=== PATIENT | female | born 1940 | race Caucasian/White ===

== ENCOUNTER 2022-03-22 22:26 | Inpatient (IN) ==
[2022-03-22] MEDS ORDERED: ALBUT/IPRATROP 3MG/0.5MG NEB 3 ML VIAL NEB STA (22:53)
--- NOTE | 2022-03-22 22:58 | Emergency Department Note ---
Impression & Plan Hypoxia, CHF (congestive heart failure), SOB (shortness of breath), COVID-19, Hypokalemia ED Provider Note NAME: MARIA LUISA BAKER AGE: 81 SEX: F : 1940 ARRIVES VIA: Walk-In INFORMANT: [Patient][son] ED PROVIDER(S): [Andreas Escobar MD] CHIEF COMPLAINT: Shortness of breath HISTORY OF PRESENT ILLNESS: The patient is an 81-year-old female with some history of asthma. She also has had CHF. She has chronic A. fib. The patient was diagnosed with COVID about a week ago. She finished Paxlovid 2 days ago. The patient has had intermittent fevers and some cough. In the last 24 hours, she has felt short of breath. She feels worse since stopping the Paxlovid. There has been no vomiting, no diarrhea, no leg swelling, no chest pain. She feels like she cannot get a deep breath. She does not typically wear oxygen. No history of previous PE, no history of [place]. REVIEW OF SYSTEMS: See HPI for pertinent positives and negatives. A total of ten systems were reviewed and were otherwise negative. PMHx/PSHx: See Below SOCIAL HISTORY: See Below. PHYSICAL EXAM: GENERAL: Patient is in no acute distress. HEENT: No acute trauma, normocephalic atraumatic, mucous membranes moist, no nasal congestion, no scleral icterus. NECK: No stridor, no adenopathy, no meningismus, trachea is midline. LUNGS: There are few scattered crackles and scattered wheezes, breath sounds are diminished, no obvious respiratory distress. She is on 2 L of nasal cannula O2. HEART: Irregular rhythm, 4/6 systolic murmur, normal rate. ABDOMEN: Soft, nontender, bowel sounds positive, no peritonitis. EXTREMITIES: No cyanosis or edema, full range of motion of all the joints without pain or difficulty, no signs for acute trauma. NEUROLOGIC: Oriented x 3, no acute motor or sensory deficits, no focal weakness. SKIN: No rash, no jaundice, no diaphoresis. DIFFERENTIAL DIAGNOSIS: Reactive airway disease, pneumonia, COVID-19, RSV, influenza, pneumothorax, COPD, CHF, infection, cardiac ischemia, anemia, pulmonary embolism, bronchitis, as well as other pathologies. EMERGENCY DEPARTMENT COURSE/PROCEDURES: ECG: Indication was shortness of breath. The ECG shows atrial fibrillation with a rate of 78. There is some baseline artifact and some nonspecific ST change. There is no ST elevation, no PVCs, the QTc is 467. Continuous Cardiac Monitoring: An order was placed for continuous cardiac monitoring. The monitor shows a rate of 81 with atrial fibrillation. Critical Care Note: I have personally spent 47 minutes of critical care time in the direct management of this patient. This includes bedside care, interpretation of diagnostic studies, and testing, discussion with consultants, patient, and family members, and other required patient management activities. This 47 minutes is in excess of all separately billable procedures. MEDICAL DECISION MAKING: There is no leukocytosis, in fact, the white count is slightly low. There is a normal hemoglobin and platelet count. Potassium is slightly low, sodium slightly low. No renal failure. No concerning liver enzyme elevation. ECG shows atrial fibrillation, no obvious ischemia. Cardiac enzyme testing x1 is not consistent with acute cardiac injury. Patient appears to be in a euthyroid state. COVID test returned positive, influenza and RSV test returned negative. Chest x-ray shows some cardiomegaly and mild heart failure, no obvious pneumonia or pneumothorax. BNP was somewhat elevated consistent with fluid overload. Chest CT for PE is currently pending. Coags are currently pending. On exam, the patient was hypoxic with some crackles and wheezes to the lung su. Patient was given IV Lasix, 40 mg. She was given oral and IV potassium. She was given a DuoNeb. She was maintained on nasal cannula O2 supplementation. The patient presents short of breath and hypoxic. She is COVID-positive. She appears to be in mild CHF. She is hypokalemic. Hospitalization is indicated. I spoke with the patient, I spoke with her family, I talked to case management, the on-call hospitalist was consulted. Past Med/Surg History Medical History Atrial fibrillation CHF (congestive heart failure) COVID-19 HTN (hypertension) Social History Smoking Status: Never smoker Preferred Language: Cambodian Feels Safe at Home: Yes Allergies Allergies Allergy/AdvReac Type Severity Reaction Status Date / Time fexofenadine Allergy Unknown UNKNOWN Verified 03/22/22 23:48 tramadol AdvReac Intermediate DIZZINESS,N Verified 03/22/22 23:48 AUSEA aspirin AdvReac Unknown NOT TO Verified 03/22/22 23:48 TAKE BECAUSE ON WARFARIN Home Meds Home Medications Medication Instructions Recorded Confirmed Calcium/Vitamin D/Magnesium 1 tab PO BID 03/22/22 03/23/22 acetaminophen 650 mg 1,300 mg PO BID PRN Pain 03/22/22 03/23/22 tablet,extended release amlodipine 5 mg tablet 5 mg PO QAM 03/22/22 03/23/22 amoxicillin 500 mg capsule 2,000 mg PO DIRECTED PRN PRIOR 03/22/22 03/23/22 TO DENTAL PROCEDURES ascorbic acid (vitamin C) 500 mg 500 mg PO BID 03/22/22 03/23/22 tablet (Vitamin C) atenolol 25 mg tablet 25 mg PO QAM 03/22/22 03/23/22 echinacea 380 mg capsule 760 mg PO DAILY 03/22/22 03/23/22 fluticasone propionate 220 2 puff inhalation BID 03/22/22 03/23/22 mcg/actuation HFA aerosol inhaler (Flovent HFA) furosemide 40 mg tablet 80 mg PO QAM 03/22/22 03/23/22 glucosamine sulf dipotassium Cl 1 tab PO BID 03/22/22 03/23/22 500 mg-chondroitin sulf 400 mg tablet (Glucosamine-Chondroitin DS) levothyroxine 112 mcg tablet 112 mcg PO QAM 03/22/22 03/23/22 multivitamin 1 tab PO QPM 03/22/22 03/23/22 potassium chloride 20 mEq 20 meq PO Q OTHER DAY 03/22/22 03/23/22 tablet,extended release simvastatin 20 mg tablet 20 mg PO QAM 03/22/22 03/23/22 turmeric root extract 500 mg 1,000 mg PO BID 03/22/22 03/23/22 capsule warfarin 1 mg tablet 0 mg PO QPM 03/22/22 03/23/22 zinc gluconate 50 mg tablet 50 mg PO DAILY 03/23/22 03/23/22 Results & Data (ED) Vital Signs Vital Signs - 24 hr 03/22/22 22:28 03/22/22 23:04 03/22/22 23:30 Temperature 36.4 C L Temperature Source Temporal Artery Scan Pulse Rate 92 H Respiratory Rate 22 Respiratory Effort / Characteristics Short of Breath Respiratory Depth Normal Blood Pressure 137/78 Blood Pressure Mean 97 Pulse Oximetry 88 L 88 L Oxygen Delivery Method Room Air Nasal Cannula Oxygen Flow Rate 0 Sepsis Recent Fever Within 48 Hours No Sepsis New/Unexplained Change in Mental Status N/A Sepsis Action Taken by Nursing No Action Required Oxygen Flow Rate - Titration 2 Pulse Oximetry Post Tiitration 96 03/22/22 23:30 Temperature Temperature Source Pulse Rate Respiratory Rate Respiratory Effort / Characteristics Respiratory Depth Blood Pressure Blood Pressure Mean Pulse Oximetry 96 Oxygen Delivery Method Nasal Cannula Oxygen Flow Rate 2 Sepsis Recent Fever Within 48 Hours Sepsis New/Unexplained Change in Mental Status Sepsis Action Taken by Nursing Oxygen Flow Rate - Titration Pulse Oximetry Post Tiitration Home Medications Current Medication List: was personally reviewed by me Laboratory Data Attestation: I reviewed the patient's lab results. Result diagrams: 03/22/22 22:40 03/22/22 22:40 Lab Results 03/22/22 03/22/22 03/22/22 Range/Units 22:38 22:40 22:40 WBC 4.76 L (4.8-10.8) K/ul RBC 4.29 (3.93-5.22) M/uL Hgb 13.8 (12.0-16.0) g/dl Hct 39.6 (34.1-44.9) % MCV 92.3 (80.0-100.0) fL MCH 32.2 (25.0-34.0) pg MCHC 34.8 (32.0-36.0) g/dL RDW Std Deviation 47.0 H (36.4-46.3) fL RDW Coeff of Migel 13.8 (11.5-14.5) % Plt Count 187 (130-400) K/uL MPV 11.2 (9.4-12.3) fL Immature Gran % (Auto) 0.4 % Neut % (Auto) 72.1 % Lymph % (Auto) 12.6 % [place] % (Auto) 14.5 % Eos % (Auto) 0.2 % Baso % (Auto) 0.2 % Neut # (Auto) 3.43 (1.4-6.5) K/uL Lymph # (Auto) 0.60 L (1.2-3.4) K/uL [place] # (Auto) 0.69 (0.24-0.82) K/uL Eos # (Auto) 0.01 (0-0.50) K/uL Baso # (Auto) 0.01 (0-0.2) K/uL Immature Gran # (Auto) 0.02 (0.00-0.02) K/uL Sodium 132 L (136-145) mmol/L Potassium 3.1 L (3.5-5.1) mmol/L Chloride 98 (98-107) mmol/L Carbon Dioxide 25 (21-32) mmol/L Anion Gap 9 (3-11) BUN 10 (6-23) mg/dl Creatinine 0.53 L (0.6-1.2) mg/dl Est Cr Clr Drug Dosing 74.2 ml/min Est GFR ( Amer) 101.8 ml/min Est GFR (Non-Af Amer) 87.8 ml/min BUN/Creatinine Ratio 18.9 (10-20) Glucose 120 H (70-99(Fasting)) mg/dl Calcium 8.5 (8.5-10.1) mg/dl Magnesium 1.9 (1.7-2.4) mg/dl Total Bilirubin 0.6 (0.2-1.0) mg/dl AST 55 H (13-39) U/L ALT 27 (7-52) U/L Alkaline Phosphatase 65 (34-104) U/L Troponin I High Sens 12.7 (0-14) pg/ml B-Natriuretic Peptide (0-100) pg/ml Total Protein 6.9 (6.0-8.3) gm/dl Albumin 4.2 (3.4-5.0) gm/dl Globulin 2.7 (2.5-4.0) gm/dl Albumin/Globulin Ratio 1.6 (0.9-2) TSH (0.300-4.500) uIu/ml SARS-CoV-2 (PCR) POSITIVE A* (Negative) Influenza Type A (PCR) Negative (Neg) Influenza Type B (PCR) Negative (Neg) RSV (RT-PCR) Negative (Neg) 03/22/22 03/22/22 Range/Units 22:40 22:40 WBC (4.8-10.8) K/ul RBC (3.93-5.22) M/uL Hgb (12.0-16.0) g/dl Hct (34.1-44.9) % MCV (80.0-100.0) fL MCH (25.0-34.0) pg MCHC (32.0-36.0) g/dL RDW Std Deviation (36.4-46.3) fL RDW Coeff of Migel (11.5-14.5) % Plt Count (130-400) K/uL MPV (9.4-12.3) fL Immature Gran % (Auto) % Neut % (Auto) % Lymph % (Auto) % [place] % (Auto) % Eos % (Auto) % Baso % (Auto) % Neut # (Auto) (1.4-6.5) K/uL Lymph # (Auto) (1.2-3.4) K/uL [place] # (Auto) (0.24-0.82) K/uL Eos # (Auto) (0-0.50) K/uL Baso # (Auto) (0-0.2) K/uL Immature Gran # (Auto) (0.00-0.02) K/uL Sodium (136-145) mmol/L Potassium (3.5-5.1) mmol/L Chloride (98-107) mmol/L Carbon Dioxide (21-32) mmol/L Anion Gap (3-11) BUN (6-23) mg/dl Creatinine (0.6-1.2) mg/dl Est Cr Clr Drug Dosing ml/min Est GFR ( Amer) ml/min Est GFR (Non-Af Amer) ml/min BUN/Creatinine Ratio (10-20) Glucose (70-99(Fasting)) mg/dl Calcium (8.5-10.1) mg/dl Magnesium (1.7-2.4) mg/dl Total Bilirubin (0.2-1.0) mg/dl AST (13-39) U/L ALT (7-52) U/L Alkaline Phosphatase (34-104) U/L Troponin I High Sens (0-14) pg/ml B-Natriuretic Peptide 173 H (0-100) pg/ml Total Protein (6.0-8.3) gm/dl Albumin (3.4-5.0) gm/dl Globulin (2.5-4.0) gm/dl Albumin/Globulin Ratio (0.9-2) TSH 3.382 (0.300-4.500) uIu/ml SARS-CoV-2 (PCR) (Negative) Influenza Type A (PCR) (Neg) Influenza Type B (PCR) (Neg) RSV (RT-PCR) (Neg) Administered Medications Discontinued Medications Albuterol (Albut/Ipratrop 3mg/0.5mg Neb 3 Ml Vial) 3 ml NEB NOW STA; Protocol Stop: 03/22/22 22:54 Last Admin: 03/22/22 23:27 Dose: 3 ml Documented By: RADU Furosemide (Furosemide 40 Mg/4 Ml Vial) 40 mg IV ONE ONE Stop: 03/22/22 23:28 Last Admin: 03/22/22 23:50 Dose: 40 mg Documented By: RADU Ioversol (Optiray 320 500ml) 107 ml IV ONCE ONE Stop: 03/23/22 00:32 Last Admin: 03/23/22 00:31 Dose: 107 ml Documented By: CYDNEY Imaging Data My Impression: Chest x-ray: Per my review there is cardiomegaly and some mild CHF. No focal pneumonia or pneumothorax. Radiologist's Impression: Chest CT for PE: Pending. Discharge Plan Visit Data Chief Complaint: Shortness of Breath/Dyspnea Stated Complaint: SOB, COUGH, ED Provider: Andreas Escobar Discharge Problem: Hypoxia, CHF (congestive heart failure), SOB (shortness of breath), COVID-19, H ypokalemia Patient Disposition: Admitted As Inpatient Condition: Fair Forms Stand Alone Forms: My [facility] Prescriptions Prescriptions: No Action multivitamin Tablet 1 tab PO QPM amoxicillin 500 mg Capsule 2,000 mg PO DIRECTED PRN (Reason: PRIOR TO DENTAL PROCEDURES) furosemide 40 mg tablet 80 mg PO QAM echinacea 380 mg Capsule 760 mg PO DAILY Rx Instructions: administer with meals atenolol 25 mg tablet 25 mg PO QAM amlodipine 5 mg tablet 5 mg PO QAM acetaminophen [Tylenol Extended Release] 650 mg Tablet Extended Release 1,300 mg PO BID PRN (Reason: Pain) ascorbic acid (vitamin C) [Vitamin C] 500 mg Tablet 500 mg PO BID simvastatin 20 mg tablet 20 mg PO QAM fluticasone propionate [Flovent HFA] 220 mcg/actuation Hfa Aerosol Inhaler 2 puff INHALATION BID warfarin 1 mg tablet 0 mg PO QPM Rx Instructions: PER PT "TAKES 4.5 MG QPM, INR 03/22/22-3.4, INSTRUCTED TO HOLD WARFARIN 03/22 & 03/23, THEN RESUME REGULAR DOSE ON 03/24". levothyroxine 112 mcg tablet 112 mcg PO QAM glucosamine herrera 2KCl-chondroit [Glucosamine-Chondroitin DS] 500-400 mg Tablet 1 tab PO BID turmeric root extract 500 mg Capsule 1,000 mg PO BID potassium chloride 20 mEq Tablet Extended Release 20 meq PO Q OTHER DAY Calcium/Vitamin D/Magnesium 1 tab PO BID zinc gluconate 50 mg Tablet 50 mg PO DAILY Referrals Referrals: Terence Kern [Primary Care Provider] -
[2022-03-22 23:25] LABS: Influenza A virus by PCR Negative (Neg); Influenza B virus by PCR Negative (Neg); RSV by PCR Negative (Neg)
[2022-03-22 23:26] LABS: Basophils # (auto) 0.01 K/uL (0-0.2); Basophils % (auto) 0.2 %; Eosinophils # (auto) 0.01 K/uL (0-0.50); Eosinophils % (auto) 0.2 %; Hematocrit (blood only) 39.6 % (34.1-44.9); Hemoglobin 13.8 g/dl (12.0-16.0); Immature Granulocytes # (auto) 0.02 K/uL (0.00-0.02); Immature Granulocytes % (auto) 0.4 %; Lymphocytes % (auto) 12.6 %; Mean Corpuscular Hemoglobin 32.2 pg (25.0-34.0); Mean Corpuscular Hgb Conc 34.8 g/dL (32.0-36.0); Mean Corpuscular Volume 92.3 fL (80.0-100.0); Mean Platelet Volume 11.2 fL (9.4-12.3); Monocytes # (auto) 0.69 K/uL (0.24-0.82); Monocytes % (auto) 14.5 %; Neutrophils # (auto) 3.43 K/uL (1.4-6.5); Neutrophils % (auto) 72.1 %; Platelet Count 187 K/uL (130-400); RDW Coefficient of Variation 13.8 % (11.5-14.5); Red Blood Count 4.29 M/uL (3.93-5.22); White Blood Count 4.76 K/ul (4.8-10.8)
[2022-03-22] MEDS ORDERED: FUROSEMIDE 40 MG/4 ML VIAL IV ONE (23:27)
[2022-03-22 23:43] LABS: Albumin Globulin Ratio 1.6 (0.9-2); Albumin Level 4.2 gm/dl (3.4-5.0); BUN Creatinine Ratio 18.9 (10-20); Bilirubin,Total 0.6 mg/dl (0.2-1.0); Calcium 8.5 mg/dl (8.5-10.1); Creatinine Clr Calc Pharmacy 74.2 ml/min; Est GFR (African American) 101.8 ml/min; Est GFR (Non-African American) 87.8 ml/min; Globulin 2.7 gm/dl (2.5-4.0); Magnesium 1.9 mg/dl (1.7-2.4); Potassium 3.1 mmol/L (3.5-5.1); Total Protein 6.9 gm/dl (6.0-8.3)
[2022-03-22 23:45] LABS: Troponin I High Sensitivity 12.7 pg/ml (0-14)
[2022-03-23] MEDS ORDERED: POTASSIUM CHLORIDE / WTR 10 MEQ/100 ML PLCT IV ONE (00:09)
[2022-03-23] MEDS ORDERED: POTASSIUM CHLORIDE CRTAB 20 MEQ TABCR PO STA ×2 (00:09→08:48)
[2022-03-23 00:10] LABS: SARS CoV2 RNA(COVID-19) Ceph POSITIVE (Negative)
[2022-03-23 00:20] LABS: INR 4.4 (0.9-1.1); Partial Thromboplastin Ratio 2.1; Prothrombin Time 43.4 Seconds (9.0-12.0)
[2022-03-23] MEDS ORDERED: OPTIRAY 320 500ml IV ONE (00:31)
[2022-03-23 01:15] LABS: Partial Thromboplastin Time 58.9 Seconds (21.0-31.0)
[2022-03-23] MEDS ORDERED: NITROGLYCERIN SL 0.4 MG/TAB TAB SL PRN (02:24)
[2022-03-23] MEDS ORDERED: ONDANSETRON INJ 2 MG/ML 2 ML VIAL IV PRN (02:24)
[2022-03-23] MEDS ORDERED: LEVALBUTEROL HCL 1.25 MG/3 ML NEB NEB PRN (02:24)
--- NOTE | 2022-03-23 03:09 | History and Physical Report ---
DATE OF ADMISSION: 03/23/2022. CHIEF COMPLAINT: Shortness of breath. HISTORY OF PRESENT ILLNESS: This is an 81-year-old female with past medical history significant for hyperlipidemia, hypothyroidism, allergic rhinitis, atrial fibrillation, hypertension, history of CAD, history of aortic stenosis, status post replacement of bioprosthetic valve, presents with shortness of breath. She was diagnosed with COVID last Monday and she took Paxlovid for 5 days, finished last Monday. After finishing the course of Paxlovid, again she started having symptoms. She had one day of symptoms prior to diagnosis of COVID of fever and cough. Since last Monday, again she is having cough, bringing up yellowish phlegm, poor appetite, does not taste good, some nausea, and feeling short of breath. She was brought into the ER and she was saturating at 88%on room air and on 2 liters, she is saturating okay. She was able to ambulate to the bathroom in the ER. Currently afebrile. No headache, no blurred visions, no earache, no runny nose. Has some sore throat. She has some occasional difficulty swallowing. She also has some difficulty swallowing the pills. Denies any chest pain, no vomiting, no abdominal pain. She has some diarrhea. No blood in the stool or black stools. Normal bladder movements. No swelling in the legs, no rash. ALLERGIES: FEXOFENADINE, TRAMADOL, ASPIRIN. PAST MEDICAL HISTORY: As mentioned above. PAST SURGICAL HISTORY: Aortic valve replacement with bioprosthetic valve, salpingo-oophorectomy. MEDICATIONS: The patient is on Tylenol Extended Release 1300 mg p.o. b.i.d. p.r.n., amlodipine 5 mg p.o. a.m., amoxicillin prior to procedures, vitamin C 500 mg p.o. b.i.d., atenolol 25 mg p.o. a.m., calcium plus vitamin D plus magnesium 1 tablet p.o. b.i.d., echinacea 760 mg p.o. daily, Flovent HFA 2 puffs inhalation b.i.d., Lasix 80 mg p.o. a.m., glucosamine chondroitin DS 1 tablet p.o. b.i.d., levothyroxine 112 mcg p.o. a.m., multivitamin 1 tablet p.o. daily, potassium chloride 20 mEq p.o. every other day, simvastatin 20 mg p.o. a.m., turmeric root extract 1000 mg p.o. b.i.d., warfarin 1 mg p.o. p.m., zinc gluconate 50 mg p.o. daily. FAMILY HISTORY: Significant for sister has cancer; father has heart disorder; mother has thyroid disorder. SOCIAL HISTORY: No smoking, no alcohol, no drug use. REVIEW OF SYSTEMS: As per HPI. Rest of the review of systems is negative. PHYSICAL EXAMINATION: GENERAL: The patient is of moderate build, not in acute distress. VITAL SIGNS: Temperature 36.4, pulse 77, respiratory rate 20, blood pressure 128/70, oxygen 95% on 2 liters, was 88% on room air. HEENT: Pupils equal, round, and reactive to light. Oral mucosa moist. NECK: No JVD, no neck masses. CARDIOVASCULAR: S1 and S2 heard. Regular rate and rhythm. No murmur, no gallop. RESPIRATORY SYSTEM: Normal AP diameter. No accessory muscle use. No wheezing or crackles. ABDOMEN: Soft, bowel sounds present, nontender, no distention. CENTRAL NERVOUS SYSTEM: Alert and oriented. Speech is clear. No facial droop. Insight is okay. Obeys simple commands. Moves extremities. EXTREMITIES: No edema, no erythema seen. LABORATORY DATA: WBC 4.7, hemoglobin 13.8, hematocrit 39.6, platelets 187. PT 43.4, INR 4.4, APTT 58.9. Sodium 132, potassium 3.1, chloride 98, bicarbonate 25, BUN 10, creatinine 0.5, serum glucose 120, calcium 8.5, magnesium 1.9, total bilirubin 0.6, AST 55, ALT 27, alkaline phosphatase 65. Troponin I high sensitivity 12.7. BNP 173. TSH 3.3. SARS-CoV-2 PCR positive. Influenza A and B PCR negative. RSV PCR negative. IMAGING DATA: CTA chest, preliminary report, no acute findings. Chest x-ray, cardiomegaly, possible mild congestion in the chest. EKG: Shows atrial fibrillation, rate of 78, nonspecific ST abnormalities. ASSESSMENT AND PLAN: This is an 81-year-old female, who presents with shortness of breath, was recently diagnosed with COVID. 1. COVID positive, diagnosed last Monday, received Paxlovid for 5 days, finished the course on Monday. After that, again developed some congestion and not feeling well and short of breath requiring 2 liters of oxygen in the ER. Since she already received antivirals, we will place her on Decadron 6 mg daily, oxygen as needed, and continue home Flovent, and placed on Xopenex p.r.n. COVID precautions. Monitor in the [employer] tele. 2. Questionable congestive heart failure: She is on Lasix at home, but we do not have any echo in the chart. Will get an echocardiogram. Received one dose of IV Lasix in the ER. 3. Aortic stenosis, status post replacement with bioprosthetic valve. 4. History of atrial fibrillation: On Coumadin. INR is supratherapeutic at 4.4. Will hold the Coumadin. Follow PT/INR. 5. History of hypertension: Continue amlodipine and atenolol. Monitor the blood pressure. 6. Hypothyroidism: On Synthroid. 7. Hyperlipidemia: On statin. 8. History of coronary artery disease: On atenolol, statin, and Coumadin. 9. Deep venous thrombosis prophylaxis: On Coumadin which is on hold as INR supratherapeutic. DISPOSITION: Closely monitor in [employer] tele. PT/OT prior to discharge. Social service to help with discharge planning. Job ID: [id number] DAPHNEY
[2022-03-23] MEDS: LEVOTHYROXINE SODIUM 112 MCG TABLET PO SCH (06:37)
[2022-03-23 07:12] LABS: Basophils # (auto) 0.01 K/uL (0-0.2); Basophils % (auto) 0.3 %; Eosinophils # (auto) 0.02 K/uL (0-0.50); Eosinophils % (auto) 0.5 %; Hematocrit (blood only) 41.1 % (34.1-44.9); Hemoglobin 14.4 g/dl (12.0-16.0); Immature Granulocytes # (auto) 0.01 K/uL (0.00-0.02); Immature Granulocytes % (auto) 0.3 %; Lymphocytes # (auto) 0.57 K/uL (1.2-3.4); Lymphocytes % (auto) 15.6 %; Mean Corpuscular Hemoglobin 31.9 pg (25.0-34.0); Mean Corpuscular Volume 91.1 fL (80.0-100.0); Mean Platelet Volume 10.9 fL (9.4-12.3); Monocytes # (auto) 0.63 K/uL (0.24-0.82); Monocytes % (auto) 17.2 %; Neutrophils # (auto) 2.42 K/uL (1.4-6.5); Neutrophils % (auto) 66.1 %; Platelet Count 178 K/uL (130-400); RDW Standard Deviation 47.4 fL (36.4-46.3); Red Blood Count 4.51 M/uL (3.93-5.22); White Blood Count 3.66 K/ul (4.8-10.8)
[2022-03-23 07:32] LABS: INR 3.8 (0.9-1.1); Prothrombin Time 37.4 Seconds (9.0-12.0)
[2022-03-23 07:45] LABS: Troponin I High Sensitivity 14.1 pg/ml (0-14)
[2022-03-23 07:49] LABS: BUN Creatinine Ratio 14.9 (10-20); Calcium 8.3 mg/dl (8.5-10.1); Creatinine Clr Calc Pharmacy 83.6 ml/min; Est GFR (African American) 105.9 ml/min; Est GFR (Non-African American) 91.3 ml/min; Magnesium 1.9 mg/dl (1.7-2.4); Potassium 3.1 mmol/L (3.5-5.1)
--- NOTE | 2022-03-23 07:50 | XRay Report ---
XR chest 1V portable CLINICAL HISTORY: SOB TECHNIQUE: Single frontal radiograph of the chest was obtained. Comparison: Comparison is made to chest radiograph 10/07/2015 FINDINGS: Median sternotomy wires are unchanged. Cardiomegaly is noted. Aortic valve prosthesis is seen. Promin ence and cephalization of the vasculature is seen. No evidence of pleural effusion or pneumothorax. IMPRESSION: Cardiomegaly and mild pulmonary edema. ACT 112: Negative or not required by law. Electronically signed by: Luther Balderas M.D. 03/23/2022 7:48 AM
--- NOTE | 2022-03-23 08:03 | CT Scan Report ---
CT angio chest PE protocol CLINICAL HISTORY: PE TECHNIQUE: Multidetector row helical CT of the chest was performed with angiographic protocol. Saha l and sagittal reformations were obtained. Coronal and sagittal MIPS were obtained from the axial yonathan a set and were submitted for review. Automated dose lowering techniques and/or adjustment according to patient size were utilized for this exam. CT DOSE: 399.68 mGy.cm Comparison: Comparison is made to chest radiograph 03/22/2022 FINDINGS: Lungs and pleura: Atelectasis versus scarring is seen in the dependent portions of the lungs.6 pleura l plaques are seen at the left lung base with associated pleural thickening. Heart and pericardium: Prominent biatrial enlargement is noted with cardiomegaly. Vessels: No evidence of pulmonary embolism. Mediastinum and fiona: Unremarkable. Chest wall and lower neck: Unremarkable. Abdomen: Unremarkable. Bones: Degenerative changes in the thoracic spine. IMPRESSION: 1. No evidence of pulmonary embolism. 2. 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 3. Prominent cardiomegaly with biatrial enlargement. ACT 112: Negative or not required by law. Electronically signed by: Luther Balderas M.D. 03/23/2022 8:02 AM
[2022-03-23] MEDS: dexAMETHasone 6 MG in SYRINGE 0 ML IV SCH (08:04)
[2022-03-23] MEDS: GLUCOSAMINE SULFATE 500 MG CAP PO SCH ×2 (08:04→20:41)
[2022-03-23] MEDS: FLUTICASONE FUROATE 200MCG 14 PUFFS/INHALER INH SCH (08:04)
[2022-03-23] MEDS: ZINC SULFATE 220 MG CAPSULE PO SCH (08:05)
[2022-03-23] MEDS: ASCORBIC ACID 500 MG TAB PO SCH ×2 (08:05→20:42)
[2022-03-23] MEDS: POTASSIUM CHLORIDE CRTAB 20 MEQ TABCR PO SCH (08:05)
[2022-03-23] MEDS: SIMVASTATIN 20 MG TAB PO SCH (08:06)
[2022-03-23] MEDS: FUROSEMIDE 80 MG TAB PO SCH (08:06)
[2022-03-23] MEDS: ATENOLOL 25 MG TABLET PO SCH (08:07)
[2022-03-23] MEDS: ACETAMINOPHEN 325 MG TAB PO PRN ×2 (08:20→20:45)
[2022-03-23] MEDS ORDERED: amLODIPine BESYLATE 5 MG TAB PO SCH (09:00)
[2022-03-23] MEDS ORDERED: FLUTICASONE HFA 220 MCG INHALER INH SCH (09:00)
--- NOTE | 2022-03-23 09:44 | Electrocardiogram Report ---
Test Reason : Blood Pressure : / mmHG Vent. Rate : 078 BPM Atrial Rate : 394 BPM P-R Int : 000 ms QRS Dur : 086 ms QT Int : 410 ms P-R-T Axes : 000 062 022 degrees QTc Int : 467 ms Poor data quality, interpretation may be adversely affected Atrial fibrillation Nonspecific ST and T wave abnormality Abnormal ECG When compared with ECG of 02-NOV-2015 14:06, Nonspecific T wave abnormality now evident in Inferior leads Inverted T waves have replaced nonspecific T wave abnormality in Anterior leads Confirmed by Marshall Chamorro ([id number]) on 03/23/2022 9:44:15 AM Referred By: REFERRED SELF Confirmed By:Sam Chamorro
[2022-03-23] MEDS: guaiFENesin 600 MG TABCR PO SCH ×2 (14:46→20:46)
--- NOTE | 2022-03-23 14:55 | Hospitalist Progress Note ---
Date of Service March 23, 2022 Assessment & Plan (1) COVID-19: (2) Hypoxia: Plan: ASSESSMENT AND PLAN: This is an 81-year-old female, who presents with shortness of breath, was recently diagnosed with COVID. 1. COVID 19 infection with hypoxia - CT chest: 1. No evidence of pulmonary embolism. 2. 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 3. Prominent cardiomegaly with biatrial enlargement. - on Decadron 6mg IV daily discussed benefits and risks of Remdesivir, patient would like to think about it first - Mucinex BID IS, FV - monitor closely 2. Questionable congestive heart failure: She is on Lasix at home, but we do not have any echo in the chart. Will get an echocardiogram. Received one dose of IV Lasix in the ER. - Echo pending no signs of volume overload hold Lasix PO for now 3. Aortic stenosis, status post replacement with bioprosthetic valve. 4. History of atrial fibrillation - INR 3.8 hold coumadin for now INR daily 5. History of hypertension - BP on the lower side hold Amlodipine and Atenololol 6. Hypothyroidism: On Synthroid. 7. Hyperlipidemia: On statin. 8. History of coronary artery disease: On atenolol, statin, and Coumadin. 9. Deep venous thrombosis prophylaxis: On Coumadin which is on hold as INR supratherapeutic. DISPOSITION:lives alone at home plan of care discussed with patient in detail and at length all questions answered she is understanding, agreeable, comfortable with the plan of care Admission and Anticipated Discharge Date Admission Date: March 23, 2022 Subjective ff up for covid 19 infection with hypoxia, etc seen resting in bed, comfortable on 2 L NC states she has dyspnea on exertion but at rest, breathing is improving since admission, less cough no chest pain appetite is poor had 1 loose BM this morning no leg pain no other symptoms Review of Systems Review of Systems: all noted and negative except for above Physical Exam Physical Exam: General- oriented x 3, not in distress, speaks in sentences with no effort or accessory muscle use Eyes- anicteric Neck- no JVD Lungs- mildly diminished breath sounds at the bases no wheezing no crackles Heart- normal rate, regular rhythm; (+) grade 3 holosystolic murmur Abdomen- normal bowel sounds, nondistended, soft, no tenderness Extremities- no pretibial edema, no calf tenderness Neuro- alert, oriented x 3; no gross focal neurologic deficits Skin- warm & dry Results & Data Results & Data ([facility]) Vital Signs (Past 12 Hours) Vital Signs Pulse Pulse Resp BP BP Pulse Ox Pulse Ox 03/23/22 13:07 95 03/23/22 11:39 03/23/22 10:30 67 20 90/60 L 95 03/23/22 09:33 70 18 113/59 L 96 03/23/22 07:00 71 18 118/74 98 03/23/22 05:00 75 18 125/77 99 O2 Del Method O2 Del Method O2 Flow Rate O2 Flow Rate 03/23/22 13:07 Nasal Cannula 2 03/23/22 11:39 Nasal Cannula 2 03/23/22 10:30 Nasal Cannula 2 03/23/22 09:33 Nasal Cannula 2 03/23/22 07:00 Nasal Cannula 2 03/23/22 05:00 Nasal Cannula 2 all noted and reviewed including below
[2022-03-23] MEDS ORDERED: REMDESIVIR 200 MG in SODIUM CHLORIDE 0.9% 210 ML IV STA (17:20)
[2022-03-23] MEDS: MULTIVITAMIN TAB PO SCH (20:42)
[2022-03-23] MEDS: MELATONIN 3 MG TAB PO PRN (23:45)
[2022-03-24] MEDS: LEVOTHYROXINE SODIUM 112 MCG TABLET PO SCH (06:26)
[2022-03-24 06:49] LABS: Hematocrit (blood only) 42.3 % (34.1-44.9); Hemoglobin 14.8 g/dl (12.0-16.0); Immature Granulocytes # (auto) 0.01 K/uL (0.00-0.02); Immature Granulocytes % (auto) 0.3 %; Lymphocytes # (auto) 0.83 K/uL (1.2-3.4); Lymphocytes % (auto) 20.8 %; Mean Corpuscular Volume 91.6 fL (80.0-100.0); Mean Platelet Volume 10.8 fL (9.4-12.3); Monocytes # (auto) 0.72 K/uL (0.24-0.82); Neutrophils # (auto) 2.43 K/uL (1.4-6.5); Neutrophils % (auto) 60.9 %; Platelet Count 210 K/uL (130-400); RDW Coefficient of Variation 14.1 % (11.5-14.5); RDW Standard Deviation 47.3 fL (36.4-46.3); Red Blood Count 4.62 M/uL (3.93-5.22); White Blood Count 3.99 K/ul (4.8-10.8)
[2022-03-24 07:14] LABS: Albumin Globulin Ratio 1.4 (0.9-2); Albumin Level 4.1 gm/dl (3.4-5.0); BUN Creatinine Ratio 31.9 (10-20); Bilirubin,Total 0.5 mg/dl (0.2-1.0); Calcium 9.3 mg/dl (8.5-10.1); Creatinine Clr Calc Pharmacy 84.3 ml/min; Est GFR (African American) 105.9 ml/min; Est GFR (Non-African American) 91.3 ml/min; Globulin 2.9 gm/dl (2.5-4.0); Potassium 3.8 mmol/L (3.5-5.1)
[2022-03-24 07:40] LABS: INR 2.6 (0.9-1.1)
[2022-03-24] MEDS: ASCORBIC ACID 500 MG TAB PO SCH ×2 (08:30→21:02)
[2022-03-24] MEDS: GLUCOSAMINE SULFATE 500 MG CAP PO SCH ×2 (08:30→21:02)
[2022-03-24] MEDS: guaiFENesin 600 MG TABCR PO SCH ×2 (08:30→21:02)
[2022-03-24] MEDS: FLUTICASONE FUROATE 200MCG 14 PUFFS/INHALER INH SCH (08:30)
[2022-03-24] MEDS: ZINC SULFATE 220 MG CAPSULE PO SCH (08:30)
[2022-03-24] MEDS: SIMVASTATIN 20 MG TAB PO SCH (08:30)
[2022-03-24] MEDS: dexAMETHasone 6 MG in SYRINGE 0 ML IV SCH (09:02)
[2022-03-24] MEDS: ACETAMINOPHEN 325 MG TAB PO PRN (09:02)
--- NOTE | 2022-03-24 17:35 | Hospitalist Progress Note ---
Date of Service March 24, 2022 Assessment & Plan (1) COVID-19: (2) Hypoxia: Plan: ASSESSMENT AND PLAN: This is an 81-year-old female, who presents with shortness of breath, was recently diagnosed with COVID. 1. COVID 19 infection with hypoxia - CT chest: 1. No evidence of pulmonary embolism. 2. 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 3. Prominent cardiomegaly with biatrial enlargement. - on Decadron 6mg IV daily discussed benefits and risks of Remdesivir, patient would like to think about it first - Mucinex BID IS, FV - monitor closely 03/24 Patient stable overall Tolerating Decadron and remdesivir, continue to #2 Renal function and liver function okay Continue Mucinex twice daily, incentive spirometry, flutter valve Repeat chest x-ray tomorrow 2. Questionable congestive heart failure: She is on Lasix at home, but we do not have any echo in the chart. Will get an echocardiogram. Received one dose of IV Lasix in the ER. - Echo: EF 65 to 70%, left atrium severely dilated, moderate to severe mitral regurgitation is present, there is a bioprosthetic aortic valve, no significant prosthetic regurgitation, compared to the report of the prior study dated 11/03/2015, the aortic valve velocities are relatively unchanged no signs of volume overload hold Lasix PO for now as patient is poor oral intake 3. Aortic stenosis, status post replacement with bioprosthetic valve. 4. History of atrial fibrillation - INR 2.6 Continue with Coumadin INR daily 5. History of hypertension - BP on the lower side hold Amlodipine and Atenololol 6. Hypothyroidism: On Synthroid. 7. Hyperlipidemia: On statin. 8. History of coronary artery disease: On atenolol, statin, and Coumadin. 9. Deep venous thrombosis prophylaxis:On Coumadin DISPOSITION:lives alone at home plan of care discussed with patient in detail and at length all questions answered she is understanding, agreeable, comfortable with the plan of care Admission and Anticipated Discharge Date Admission Date: March 23, 2022 Subjective Follow-up for COVID-19 infection with hypoxia, etc. Seen resting with sitting up, on 2 L of oxygen via nasal cannula Patient is a comfortable, not in distress States she feels somewhat improved compared to yesterday Breathing still but better Still having some dry cough But no chest pain, palpitations, dizziness Appetite is improving No other symptom Review of Systems Review of Systems: all noted and negative except for above Physical Exam Physical Exam: General- oriented x 3, not in distress, speaks in sentences with no effort or accessory muscle use Eyes- anicteric Neck- no JVD Lungs- clear breath sounds bilaterally, no crackles or wheezing Heart- normal rate, regular rhythm; no murmurs Abdomen- normal bowel sounds, nondistended, soft, nontender Extremities- no pretibial edema, no calf tenderness Neuro- alert, oriented x 3; no gross focal neurologic deficits Skin- warm & dry Results & Data Results & Data ([facility]) Vital Signs (Past 12 Hours) Vital Signs Pulse Resp BP Pulse Ox O2 Del Method O2 Flow Rate 03/24/22 13:36 96 H 18 117/78 95 Nasal Cannula 2 03/24/22 08:56 Nasal Cannula 2 03/24/22 08:35 78 18 126/77 96 Nasal Cannula 2 all noted and reviewed including below
[2022-03-24] MEDS ORDERED: WARFARIN SOD 1 MG TAB PO STA (17:48)
[2022-03-24] MEDS: REMDESIVIR 100 MG in SODIUM CHLORIDE 0.9% 230 ML IV SCH (20:22)
[2022-03-24] MEDS: MULTIVITAMIN TAB PO SCH (21:02)
[2022-03-24] MEDS: MELATONIN 3 MG TAB PO PRN (22:31)
[2022-03-25] MEDS: LEVOTHYROXINE SODIUM 112 MCG TABLET PO SCH (05:53)
[2022-03-25 06:55] LABS: Albumin Globulin Ratio 1.5 (0.9-2); Albumin Level 3.7 gm/dl (3.4-5.0); BUN Creatinine Ratio 30.6 (10-20); Bilirubin,Total 0.5 mg/dl (0.2-1.0); Calcium 8.5 mg/dl (8.5-10.1); Creatinine Clr Calc Pharmacy 80.8 ml/min; Est GFR (African American) 104.4 ml/min; Est GFR (Non-African American) 90.1 ml/min; Globulin 2.5 gm/dl (2.5-4.0); Potassium 3.4 mmol/L (3.5-5.1); Total Protein 6.2 gm/dl (6.0-8.3)
[2022-03-25 07:09] LABS: INR 1.9 (0.9-1.1); Prothrombin Time 19.6 Seconds (9.0-12.0)
[2022-03-25] MEDS ORDERED: POTASSIUM CHLORIDE CRTAB 20 MEQ TABCR PO STA (08:22)
[2022-03-25] MEDS: FLUTICASONE FUROATE 200MCG 14 PUFFS/INHALER INH SCH (08:41)
[2022-03-25] MEDS: dexAMETHasone 6 MG in SYRINGE 0 ML IV SCH (08:41)
[2022-03-25] MEDS: guaiFENesin 600 MG TABCR PO SCH ×2 (08:42→20:16)
[2022-03-25] MEDS: SIMVASTATIN 20 MG TAB PO SCH (08:42)
[2022-03-25] MEDS: ASCORBIC ACID 500 MG TAB PO SCH ×2 (08:42→20:18)
[2022-03-25] MEDS: POTASSIUM CHLORIDE CRTAB 20 MEQ TABCR PO SCH (08:42)
[2022-03-25] MEDS: ZINC SULFATE 220 MG CAPSULE PO SCH (08:42)
[2022-03-25] MEDS: GLUCOSAMINE SULFATE 500 MG CAP PO SCH ×2 (08:42→20:18)
[2022-03-25] MEDS: ATENOLOL 25 MG TABLET PO SCH (12:09)
--- NOTE | 2022-03-25 14:22 | XRay Report ---
XR chest 1V portable CLINICAL HISTORY: ff up covid 19 infection TECHNIQUE: Single frontal radiograph of the chest was obtained. Comparison: Comparison is made to chest radiograph 03/22/2022 FINDINGS: Median sternotomy wires are unchanged. Cardiomegaly is noted. Prominence and cephalization of the vas culature is seen. Pleural plaques are better seen on CT. No evidence of pleural effusion or pneumotho rax. IMPRESSION: Cardiomegaly and mild pulmonary edema. No definite evidence of pneumonia. ACT 112: Negative or not required by law. Electronically signed by: Luther Balderas M.D. 03/25/2022 2:21 PM
[2022-03-25] MEDS ORDERED: FLUCONAZOLE 50 MG TAB PO ONE (14:30)
--- NOTE | 2022-03-25 16:24 | Hospitalist Progress Note ---
Date of Service March 25, 2022 Assessment & Plan (1) COVID-19: (2) Hypoxia: Plan: ASSESSMENT AND PLAN: This is an 81-year-old female, who presents with shortness of breath, was recently diagnosed with COVID. 1. COVID 19 infection with hypoxia - CT chest: 1. No evidence of pulmonary embolism. 2. 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 3. Prominent cardiomegaly with biatrial enlargement. - on Decadron 6mg IV daily discussed benefits and risks of Remdesivir, patient would like to think about it first - Mucinex BID IS, FV - monitor closely 03/24 Patient stable overall Tolerating Decadron and remdesivir, continue to #2 Renal function and liver function okay Continue Mucinex twice daily, incentive spirometry, flutter valve 03/25 Repeat chest x-ray: No pneumonia Weaned off oxygen Clinically improving Continue remdesivir plus Decadron Renal function and liver function okay 2. Questionable congestive heart failure: She is on Lasix at home, but we do not have any echo in the chart. Will get an echocardiogram. Received one dose of IV Lasix in the ER. - Echo: EF 65 to 70%, left atrium severely dilated, moderate to severe mitral regurgitation is present, there is a bioprosthetic aortic valve, no significant prosthetic regurgitation, compared to the report of the prior study dated 11/03/2015, the aortic valve velocities are relatively unchanged -Mild pulmonary vascular congestion on chest x-ray Resume Lasix 3. Aortic stenosis, status post replacement with bioprosthetic valve. 4. History of atrial fibrillation - INR 1.9 Continue with Coumadin INR daily -Resume atenolol 5. History of hypertension -Hold amlodipine to prevent hypotension 6. Hypothyroidism: On Synthroid. 7. Hyperlipidemia: On statin. 8. History of coronary artery disease: On atenolol, statin, and Coumadin. 9. Deep venous thrombosis prophylaxis:On Coumadin DISPOSITION:lives alone at home plan of care discussed with patient and her family in detail and at length all questions answered they are understanding, agreeable, comfortable with the plan of care Admission and Anticipated Discharge Date Admission Date: March 23, 2022 Subjective Follow-up for COVID-19 infection with hypoxia, etc. Patient seen resting in bed, sitting up, not in distress, comfortable Family at the bedside visiting States she feels improved today overall Breathing is improving Less cough, expectorating phlegm last night No chest pain Appetite improving No other symptoms Review of Systems Review of Systems: all noted and negative except for above Physical Exam Physical Exam: General- oriented x 3, not in distress, speaks in sentences with no effort or accessory muscle use Eyes- anicteric Neck- no JVD Lungs- clear BS bilaterally, no rales/wheezes Heart- normal rate, regular rhythm; no murmurs Abdomen- normal bowel sounds, nondistended, soft, nontender Extremities- no pretibial edema, no calf tenderness Neuro- alert, oriented x 3; no gross focal neurologic deficits Skin- warm & dry Results & Data Results & Data ([facility]) Vital Signs (Past 12 Hours) Vital Signs Temp Pulse Pulse Resp BP Pulse Ox O2 Del Method 03/25/22 16:18 77 03/25/22 08:45 Nasal Cannula 03/25/22 15:13 36.7 C 68 16 117/65 96 Room Air 03/25/22 12:01 36.9 C 87 18 122/86 95 Nasal Cannula 03/25/22 08:15 36.8 C 80 18 136/74 92 Room Air 03/25/22 07:21 69 O2 Flow Rate 03/25/22 16:18 03/25/22 08:45 2 03/25/22 15:13 03/25/22 12:01 2 03/25/22 08:15 03/25/22 07:21 all noted and reviewed including below
[2022-03-25] MEDS ORDERED: WARFARIN SOD 2 MG TAB PO SCH (17:00)
[2022-03-25] MEDS: WARFARIN SOD 2 MG TAB PO SCH (17:32)
[2022-03-25] MEDS: REMDESIVIR 100 MG in SODIUM CHLORIDE 0.9% 230 ML IV SCH (20:14)
[2022-03-25] MEDS: MULTIVITAMIN TAB PO SCH (20:17)
[2022-03-25] MEDS: MELATONIN 3 MG TAB PO PRN (21:14)
[2022-03-26 06:14] LABS: INR 2.1 (0.9-1.1); Prothrombin Time 21.1 Seconds (9.0-12.0)
[2022-03-26] MEDS: LEVOTHYROXINE SODIUM 112 MCG TABLET PO SCH (06:16)
[2022-03-26 06:31] LABS: Albumin Globulin Ratio 1.6 (0.9-2); Albumin Level 3.9 gm/dl (3.4-5.0); BUN Creatinine Ratio 33.3 (10-20); Bilirubin,Total 0.5 mg/dl (0.2-1.0); Calcium 8.7 mg/dl (8.5-10.1); Creatinine Clr Calc Pharmacy 86.6 ml/min; Est GFR (African American) 107.4 ml/min; Est GFR (Non-African American) 92.7 ml/min; Globulin 2.5 gm/dl (2.5-4.0); Potassium 3.7 mmol/L (3.5-5.1); Total Protein 6.4 gm/dl (6.0-8.3)
[2022-03-26] MEDS: guaiFENesin 600 MG TABCR PO SCH ×2 (08:09→20:06)
[2022-03-26] MEDS: GLUCOSAMINE SULFATE 500 MG CAP PO SCH ×2 (08:09→20:04)
[2022-03-26] MEDS: ASCORBIC ACID 500 MG TAB PO SCH ×2 (08:09→20:05)
[2022-03-26] MEDS: ZINC SULFATE 220 MG CAPSULE PO SCH (08:10)
[2022-03-26] MEDS: FUROSEMIDE 80 MG TAB PO SCH (08:10)
[2022-03-26] MEDS: ATENOLOL 25 MG TABLET PO SCH ×2 (08:10→08:14)
[2022-03-26] MEDS: SIMVASTATIN 20 MG TAB PO SCH (08:10)
[2022-03-26] MEDS: FLUTICASONE FUROATE 200MCG 14 PUFFS/INHALER INH SCH (08:14)
[2022-03-26] MEDS: dexAMETHasone 6 MG in SYRINGE 0 ML IV SCH (09:24)
[2022-03-26] MEDS: NYSTATIN SUSP 500,000 U/5 ML UDC PO SCH ×3 (12:32→20:03)
[2022-03-26] MEDS: WARFARIN SOD 2 MG TAB PO SCH (15:47)
--- NOTE | 2022-03-26 15:55 | Hospitalist Progress Note ---
Date of Service March 26, 2022 Assessment & Plan (1) COVID-19: (2) Hypoxia: Plan: ASSESSMENT AND PLAN: This is an 81-year-old female, who presents with shortness of breath, was recently diagnosed with COVID. 1. COVID 19 infection with hypoxia - CT chest: 1. No evidence of pulmonary embolism. 2. 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 3. Prominent cardiomegaly with biatrial enlargement. - on Decadron 6mg IV daily discussed benefits and risks of Remdesivir, patient would like to think about it first - Mucinex BID IS, FV - monitor closely 03/24 Patient stable overall Tolerating Decadron and remdesivir, continue to #2 Renal function and liver function okay Continue Mucinex twice daily, incentive spirometry, flutter valve 03/25 Repeat chest x-ray: No pneumonia Weaned off oxygen Clinically improving Continue remdesivir plus Decadron Renal function and liver function okay 03/26 clinically improving on 2 L, discussed with RN to attempt weaning continue Remdesivir Day 3, Decadron blood work ok 2. Questionable congestive heart failure: - Echo: EF 65 to 70%, left atrium severely dilated, moderate to severe mitral regurgitation is present, there is a bioprosthetic aortic valve, no significant prosthetic regurgitation, compared to the report of the prior study dated 11/03/2015, the aortic valve velocities are relatively unchanged -Mild pulmonary vascular congestion on chest x-ray Resumed Lasix 3. Aortic stenosis, status post replacement with bioprosthetic valve. 4. History of atrial fibrillation - INR 2.1 Continue with Coumadin INR daily -Resume atenolol 5. History of hypertension -Hold amlodipine to prevent hypotension 6. Hypothyroidism: On Synthroid. 7. Hyperlipidemia: On statin. 8. History of coronary artery disease: On atenolol, statin, and Coumadin. 9. Deep venous thrombosis prophylaxis:On Coumadin DISPOSITION:lives alone at home plan of care discussed with patient and her family in detail and at length all questions answered they are understanding, agreeable, comfortable with the plan of care Admission and Anticipated Discharge Date Admission Date: March 23, 2022 Subjective ff up for COVID-19 infection with hypoxia, etc. Seen resting in bed, sitting up on 2 L of oxygen via nasal cannula States she continues to feel improved overall Breathing is improving Less cough, no chest pain, no leg pain, appetite is improving No fevers or chills No other symptoms Review of Systems Review of Systems: all noted and negative except for above Physical Exam Physical Exam: General- oriented x 3, not in distress, speaks in sentences with no effort or accessory muscle use Eyes- anicteric Neck- no JVD Lungs- clear breath sounds BL, no crackles or wheezing Heart- normal rate, regular rhythm; (+) murmur Abdomen- normal bowel sounds, nondistended, soft, nontender Extremities- no pretibial edema, no calf tenderness Neuro- alert, oriented x 3; no gross focal neurologic deficits Skin- warm & dry Results & Data Results & Data ([facility]) Vital Signs (Past 12 Hours) Vital Signs Temp Pulse Pulse Resp BP Pulse Ox O2 Del Method 03/26/22 15:15 68 03/26/22 07:48 36.7 C 79 18 126/78 97 Nasal Cannula 03/26/22 07:12 57 L O2 Flow Rate 03/26/22 15:15 03/26/22 07:48 2 03/26/22 07:12 all noted and reviewed including below
[2022-03-26] MEDS: REMDESIVIR 100 MG in SODIUM CHLORIDE 0.9% 230 ML IV SCH (20:02)
[2022-03-26] MEDS: MELATONIN 3 MG TAB PO PRN (20:03)
[2022-03-26] MEDS: MULTIVITAMIN TAB PO SCH (20:05)
[2022-03-26] MEDS: ACETAMINOPHEN 325 MG TAB PO PRN (20:34)
[2022-03-27] MEDS: LEVOTHYROXINE SODIUM 112 MCG TABLET PO SCH (06:33)
[2022-03-27] MEDS: guaiFENesin 600 MG TABCR PO SCH ×2 (07:43→20:48)
[2022-03-27] MEDS: FUROSEMIDE 80 MG TAB PO SCH (07:44)
[2022-03-27] MEDS: ASCORBIC ACID 500 MG TAB PO SCH ×2 (07:44→20:48)
[2022-03-27] MEDS: SIMVASTATIN 20 MG TAB PO SCH (07:44)
[2022-03-27] MEDS: NYSTATIN SUSP 500,000 U/5 ML UDC PO SCH ×4 (07:45→20:50)
[2022-03-27] MEDS: FLUTICASONE FUROATE 200MCG 14 PUFFS/INHALER INH SCH (07:45)
[2022-03-27] MEDS: GLUCOSAMINE SULFATE 500 MG CAP PO SCH ×2 (07:45→20:49)
[2022-03-27] MEDS: ZINC SULFATE 220 MG CAPSULE PO SCH (07:45)
[2022-03-27] MEDS: dexAMETHasone 6 MG in SYRINGE 0 ML IV SCH (07:46)
[2022-03-27] MEDS: ATENOLOL 25 MG TABLET PO SCH (07:49)
[2022-03-27 08:12] LABS: Albumin Globulin Ratio 1.5 (0.9-2); Albumin Level 3.7 gm/dl (3.4-5.0); BUN Creatinine Ratio 31.3 (10-20); Bilirubin,Total 0.7 mg/dl (0.2-1.0); Calcium 8.5 mg/dl (8.5-10.1); Creatinine Clr Calc Pharmacy 81.3 ml/min; Est GFR (African American) 105.1 ml/min; Est GFR (Non-African American) 90.7 ml/min; Globulin 2.4 gm/dl (2.5-4.0); Potassium 3.3 mmol/L (3.5-5.1); Total Protein 6.1 gm/dl (6.0-8.3)
[2022-03-27 08:13] LABS: INR 2.3 (0.9-1.1); Prothrombin Time 23.5 Seconds (9.0-12.0)
[2022-03-27] MEDS: POTASSIUM CHLORIDE CRTAB 20 MEQ TABCR PO SCH (09:22)
[2022-03-27] MEDS: ACETAMINOPHEN 325 MG TAB PO PRN ×2 (12:39→23:04)
[2022-03-27] MEDS ORDERED: POTASSIUM CHLORIDE CRTAB 20 MEQ TABCR PO STA (13:31)
--- NOTE | 2022-03-27 14:53 | Hospitalist Progress Note ---
Date of Service March 27, 2022 Assessment & Plan (1) COVID-19: (2) Hypoxia: Plan: ASSESSMENT AND PLAN: This is an 81-year-old female, who presents with shortness of breath, was recently diagnosed with COVID. 1. COVID 19 infection with hypoxia - CT chest: 1. No evidence of pulmonary embolism. 2. 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 3. Prominent cardiomegaly with biatrial enlargement. - on Decadron 6mg IV daily discussed benefits and risks of Remdesivir, patient would like to think about it first - Mucinex BID IS, FV - monitor closely 03/27 Stable Clinically improving Continue remdesivir day #5 Continue Decadron Anticipate discharge to home tomorrow 2. Questionable congestive heart failure: - Echo: EF 65 to 70%, left atrium severely dilated, moderate to severe mitral regurgitation is present, there is a bioprosthetic aortic valve, no significant prosthetic regurgitation, compared to the report of the prior study dated 11/03/2015, the aortic valve velocities are relatively unchanged -Mild pulmonary vascular congestion on chest x-ray Continue usual Lasix 3. Aortic stenosis, status post replacement with bioprosthetic valve. 4. History of atrial fibrillation - INR 2.3 Continue with Coumadin INR daily -Resume atenolol 5. History of hypertension -Hold amlodipine to prevent hypotension 6. Hypothyroidism: On Synthroid. 7. Hyperlipidemia: On statin. 8. History of coronary artery disease: On atenolol, statin, and Coumadin. 9. Deep venous thrombosis prophylaxis:On Coumadin DISPOSITION:lives alone at home plan of care discussed with patient and her family in detail and at length all questions answered they are understanding, agreeable, comfortable with the plan of care Admission and Anticipated Discharge Date Admission Date: March 23, 2022 Subjective Follow-up for COVID-19 infection with hypoxia, etc. Seen sitting up in bed, comfortable, not distressed On 2 L of oxygen States breathing is fine, better overall No cough, shortness of breath, Even with ambulation No other symptoms Review of Systems Review of Systems: all noted and negative except for above Physical Exam Physical Exam: General- oriented x 3, not in distress, speaks in sentences with no effort or accessory muscle use Eyes- anicteric Neck- no JVD Lungs- clear breath sounds bilaterally, no wheezing, no crackles Heart- normal rate, regular rhythm; no murmurs Abdomen- normal bowel sounds, nondistended, soft, nontender Extremities- no pretibial edema, no calf tenderness Neuro- alert, oriented x 3; no gross focal neurologic deficits Skin- warm & dry Results & Data Results & Data ([facility]) Vital Signs (Past 12 Hours) Vital Signs Temp Pulse Pulse Resp BP Pulse Ox O2 Del Method 03/27/22 08:46 Nasal Cannula 03/27/22 06:55 36.7 C 94 H 14 152/85 H 94 Room Air 03/27/22 07:12 52 L O2 Flow Rate 03/27/22 08:46 2 03/27/22 06:55 03/27/22 07:12 all noted and reviewed including below
[2022-03-27] MEDS: WARFARIN SOD 2 MG TAB PO SCH (16:10)
[2022-03-27] MEDS: REMDESIVIR 100 MG in SODIUM CHLORIDE 0.9% 230 ML IV SCH (20:46)
[2022-03-27] MEDS: MULTIVITAMIN TAB PO SCH (20:48)
[2022-03-27] MEDS: MELATONIN 3 MG TAB PO PRN (23:03)
[2022-03-28] MEDS: LEVOTHYROXINE SODIUM 112 MCG TABLET PO SCH (06:40)
[2022-03-28] MEDS ORDERED: COUGH DROP (SUGAR FREE) LOZ 24 LOZ/1 BOX BUCCAL PRN (07:38)
[2022-03-28 08:45] LABS: INR 2.4 (0.9-1.1); Prothrombin Time 24.5 Seconds (9.0-12.0)
[2022-03-28 08:54] LABS: BUN Creatinine Ratio 32.6 (10-20); Calcium 8.5 mg/dl (8.5-10.1); Creatinine Clr Calc Pharmacy 84.9 ml/min; Est GFR (African American) 106.6 ml/min; Potassium 3.7 mmol/L (3.5-5.1)
[2022-03-28] MEDS: dexAMETHasone 6 MG in SYRINGE 0 ML IV SCH (09:43)
[2022-03-28] MEDS: FUROSEMIDE 80 MG TAB PO SCH (09:44)
[2022-03-28] MEDS: ASCORBIC ACID 500 MG TAB PO SCH (09:44)
[2022-03-28] MEDS: guaiFENesin 600 MG TABCR PO SCH (09:44)
[2022-03-28] MEDS: ATENOLOL 25 MG TABLET PO SCH (09:44)
[2022-03-28] MEDS: FLUTICASONE FUROATE 200MCG 14 PUFFS/INHALER INH SCH (09:44)
[2022-03-28] MEDS: SIMVASTATIN 20 MG TAB PO SCH (09:44)
[2022-03-28] MEDS: GLUCOSAMINE SULFATE 500 MG CAP PO SCH (09:44)
[2022-03-28] MEDS: ZINC SULFATE 220 MG CAPSULE PO SCH (09:44)
[2022-03-28] MEDS: NYSTATIN SUSP 500,000 U/5 ML UDC PO SCH ×2 (09:45→12:39)
[2022-03-28] MEDS: ACETAMINOPHEN 325 MG TAB PO PRN (09:45)
--- NOTE | 2022-03-28 14:21 | Hospitalist Progress Note ---
Date of Service March 28, 2022 Assessment & Plan (1) COVID-19: (2) Hypoxia: Plan: ASSESSMENT AND PLAN: This is an 81-year-old female, who presents with shortness of breath, was recently diagnosed with COVID. 1. COVID 19 infection with hypoxia - CT chest: 1. No evidence of pulmonary embolism. 2. 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 3. Prominent cardiomegaly with biatrial enlargement. -Completed 5-day course of remdesivir and Decadron IV -Also given Mucinex BID IS, FV Patient clinically improved Weaned off oxygen Discharge to home with Mucinex twice daily x3 days, nystatin for oral thrush x7 days Follow-up with primary care physician in 1 week 2. Questionable congestive heart failure: - Echo: EF 65 to 70%, left atrium severely dilated, moderate to severe mitral regurgitation is present, there is a bioprosthetic aortic valve, no significant prosthetic regurgitation, compared to the report of the prior study dated 11/03/2015, the aortic valve velocities are relatively unchanged -Mild pulmonary vascular congestion on chest x-ray -Clinically euvolemic - Continue usual Lasix 3. Aortic stenosis, status post replacement with bioprosthetic valve. 4. History of atrial fibrillation - INR 2.4 Continue with Coumadin Continue with atenolol 5. History of hypertension -Continue amlodipine 6. Hypothyroidism: On Synthroid. 7. Hyperlipidemia: On statin. 8. History of coronary artery disease: On atenolol, statin, and Coumadin. 9. Deep venous thrombosis prophylaxis:On Coumadin DISPOSITION:Discharge to home with home health services plan of care discussed with patient all questions answered she is understanding, agreeable, comfortable with the plan of care Admission and Anticipated Discharge Date Admission Date: March 23, 2022 Subjective Follow-up for COVID-19 infection, hypoxia, etc. Seen resting in bed, sitting up, not in distress, on room air Comfortable States she feels much better overall No shortness of breath, chest pain, palpitations, dizziness Very minimal cough No other symptoms States she is ready for discharge today Review of Systems Review of Systems: all noted and negative except for above Physical Exam Physical Exam: General- oriented x 3, not in distress, speaks in sentences with no effort or accessory muscle use Eyes- anicteric Neck- no JVD Lungs- clear breath sounds bilaterally, no wheezing, no crackles Heart- normal rate, regular rhythm; no murmurs Abdomen- normal bowel sounds, nondistended, soft, nontender Extremities- no pretibial edema, no calf tenderness Neuro- alert, oriented x 3; no gross focal neurologic deficits Skin- warm & dry Results & Data Results & Data ([facility]) Vital Signs (Past 12 Hours) Vital Signs Temp Pulse Pulse Pulse Pulse Pulse Resp 03/28/22 13:29 36.7 C 78 20 03/28/22 08:00 82 03/28/22 08:00 03/28/22 12:10 78 20 03/28/22 09:21 119 H 98 H 78 03/28/22 07:52 36.7 C 77 16 03/28/22 03:02 36.6 C 66 18 Resp Resp Resp BP BP Pulse Ox Pulse Ox 03/28/22 13:29 142/79 H 116/77 91 03/28/22 08:00 03/28/22 08:00 03/28/22 12:10 116/77 91 03/28/22 09:21 20 18 18 91 03/28/22 07:52 142/79 H 92 03/28/22 03:02 110/66 97 Pulse Ox Pulse Ox O2 Del Method 03/28/22 13:29 03/28/22 08:00 03/28/22 08:00 Room Air 03/28/22 12:10 Room Air 03/28/22 09:21 91 94 03/28/22 07:52 Room Air 03/28/22 03:02 Room Air all noted and reviewed including below
--- NOTE | 2022-03-28 14:30 | Discharge Summary ---
Discharge Summary Date of Service March 28, 2022 Notes For Next Care Provider Medication Changes From Visit New medications: Mucinex 600 mg twice daily x3 days Nystatin oral solution 4 times daily x7 days Admission HPI Per Admitting Provider HISTORY OF PRESENT ILLNESS: This is an 81-year-old female with past medical history significant for hyperlipidemia, hypothyroidism, allergic rhinitis, atrial fibrillation, hypertension, history of CAD, history of aortic stenosis, status post replacement of bioprosthetic valve, presents with shortness of breath. She was diagnosed with COVID last Monday and she took Paxlovid for 5 days, finished last Monday. After finishing the course of Paxlovid, again she started having symptoms. She had one day of symptoms prior to diagnosis of COVID of fever and cough. Since last Monday, again she is having cough, bringing up yellowish phlegm, poor appetite, does not taste good, some nausea, and feeling short of breath. She was brought into the ER and she was saturating at 88%on room air and on 2 liters, she is saturating okay. She was able to ambulate to the bathroom in the ER. Currently afebrile. No headache, no blurred visions, no earache, no runny nose. Has some sore throat. She has some occasional difficulty swallowing. She also has some difficulty swallowing the pills. Denies any chest pain, no vomiting, no abdominal pain. She has some diarrhea. No blood in the stool or black stools. Normal bladder movements. No swelling in the legs, no rash. Admission Exam Per Admitting Provider GENERAL: The patient is of moderate build, not in acute distress. VITAL SIGNS: Temperature 36.4, pulse 77, respiratory rate 20, blood pressure 128/70, oxygen 95% on 2 liters, was 88% on room air. HEENT: Pupils equal, round, and reactive to light. Oral mucosa moist. NECK: No JVD, no neck masses. CARDIOVASCULAR: S1 and S2 heard. Regular rate and rhythm. No murmur, no gallop. RESPIRATORY SYSTEM: Normal AP diameter. No accessory muscle use. No wheezing or crackles. ABDOMEN: Soft, bowel sounds present, nontender, no distention. CENTRAL NERVOUS SYSTEM: Alert and oriented. Speech is clear. No facial droop. Insight is okay. Obeys simple commands. Moves extremities. EXTREMITIES: No edema, no erythema seen. Principal Dx & Hospital Course #1 = Principal Diagnosis (1) COVID-19: (2) Hypoxia: (1) COVID-19: (2) Hypoxia: Plan: ASSESSMENT AND PLAN: This is an 81-year-old female, who presents with shortness of breath, was recently diagnosed with COVID. 1. COVID 19 infection with hypoxia - CT chest: 1. No evidence of pulmonary embolism. 2. 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 3. Prominent cardiomegaly with biatrial enlargement. -Completed 5-day course of remdesivir and Decadron IV -Also given Mucinex BID IS, FV Patient clinically improved Weaned off oxygen Discharge to home with Mucinex twice daily x3 days, nystatin for oral thrush x7 days Follow-up with primary care physician in 1 week 2. Questionable congestive heart failure: - Echo: EF 65 to 70%, left atrium severely dilated, moderate to severe mitral regurgitation is present, there is a bioprosthetic aortic valve, no significant prosthetic regurgitation, compared to the report of the prior study dated 11/03/2015, the aortic valve velocities are relatively unchanged -Mild pulmonary vascular congestion on chest x-ray -Clinically euvolemic - Continue usual Lasix 3. Aortic stenosis, status post replacement with bioprosthetic valve. 4. History of atrial fibrillation - INR 2.4 Continue with Coumadin Continue with atenolol 5. History of hypertension -Continue amlodipine 6. Hypothyroidism: On Synthroid. 7. Hyperlipidemia: On statin. 8. History of coronary artery disease: On atenolol, statin, and Coumadin. 9. Deep venous thrombosis prophylaxis:On Coumadin DISPOSITION:Discharge to home with home health services plan of care discussed with patient all questions answered she is understanding, agreeable, comfortable with the plan of care Discharge Exam General- oriented x 3, not in distress, speaks in sentences with no effort or accessory muscle use Eyes- anicteric Neck- no JVD Lungs- clear breath sounds bilaterally, no wheezing, no crackles Heart- normal rate, regular rhythm; no murmurs Abdomen- normal bowel sounds, nondistended, soft, nontender Extremities- no pretibial edema, no calf tenderness Neuro- alert, oriented x 3; no gross focal neurologic deficits Skin- warm & dry Updated Medication List Medication Instructions Recorded Confirmed Type Calcium/Vitamin D/Magnesium 1 tab PO BID 03/22/22 03/23/22 History acetaminophen 650 mg 1,300 mg PO BID PRN Pain 03/22/22 03/23/22 History tablet,extended release amlodipine 5 mg tablet 5 mg PO QAM 03/22/22 03/23/22 History amoxicillin 500 mg capsule 2,000 mg PO DIRECTED PRN PRIOR 03/22/22 03/23/22 History TO DENTAL PROCEDURES ascorbic acid (vitamin C) 500 mg 500 mg PO BID 03/22/22 03/23/22 History tablet (Vitamin C) atenolol 25 mg tablet 25 mg PO QAM 03/22/22 03/23/22 History echinacea 380 mg capsule 760 mg PO DAILY 03/22/22 03/23/22 History fluticasone propionate 220 2 puff inhalation BID 03/22/22 03/23/22 History mcg/actuation HFA aerosol inhaler (Flovent HFA) furosemide 40 mg tablet 80 mg PO QAM 03/22/22 03/23/22 History glucosamine sulf dipotassium Cl 1 tab PO BID 03/22/22 03/23/22 History 500 mg-chondroitin sulf 400 mg tablet (Glucosamine-Chondroitin DS) levothyroxine 112 mcg tablet 112 mcg PO QAM 03/22/22 03/23/22 History multivitamin 1 tab PO QPM 03/22/22 03/23/22 History potassium chloride 20 mEq 20 meq PO Q OTHER DAY 03/22/22 03/23/22 History tablet,extended release simvastatin 20 mg tablet 20 mg PO QAM 03/22/22 03/23/22 History turmeric root extract 500 mg 1,000 mg PO BID 03/22/22 03/23/22 History capsule warfarin 1 mg tablet 0 mg PO QPM 03/22/22 03/23/22 History zinc gluconate 50 mg tablet 50 mg PO DAILY 03/23/22 03/23/22 History guaifenesin 600 mg tablet, 600 mg PO Q12 3 days #6 tabs 03/28/22 Rx extended release 12 hr (Mucinex) nystatin 100,000 unit/mL oral 5 ml PO QID 7 days #140 mL 03/28/22 Rx suspension Hospital Stay Data Consultations 03/23/22 00:11 ED Decision to Admit Stat Diagnostic Imagining Performed 03/22/22 22:52 CT angio chest PE protocol Stat Comparison: Comparison is made to chest radiograph 03/22/2022 FINDINGS: Lungs and pleura: Atelectasis versus scarring is seen in the dependent portions of the lungs.6 pleural plaques are seen at the left lung base with associated pleural thickening. Heart and pericardium: Prominent biatrial enlargement is noted with cardiom egaly. Vessels: No evidence of pulmonary embolism. Mediastinum and fiona: Unremarkable. Chest wall and lower neck: Unremarkable. Abdomen: Unremarkable. Bones: Degenerative changes in the thoracic spine. IMPRESSION: 1. No evidence of pulmonary embolism. 2. 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 3. Prominent cardiomegaly with biatrial enlargement. ACT 112: Negative or not required by law. Electronically signed by: Luther Balderas M.D. 03/23/2022 8:02 AM Pending Results Patient Have Any Pending Studies at Discharge: No Discharge Instructions Given to Patient (Per Discharging Provider) PLEASE REFER TO YOUR NEW MEDICATION LIST AND FOLLOW INSTRUCTIONS CAREFULLY. YOUR NEW MEDICATIONS INCLUDE: Mucinex- for cough Nystatin-for oral thrush Continue using incentive spirometer, flutter valve at home. Drink plenty of fluids. Try to ambulate frequently. PLEASE CALL YOUR PRIMARY CARE PHYSICIAN OR RETURN TO THE ER IF WITH WORSENING OF SYMPTOMS, INCLUDING Shortness of breath, chest pain, fevers or chills, weakness, nausea vomiting, poor appetite, etc. FOLLOW UP WITH PRIMARY CARE PHYSICIAN in 1 week. Total Time Total Time Spent Total Time Spent (In Minutes): >30 minutes
== END 2022-03-28 16:24 | disposition home health service (06) | DRG 177 ==
LOC: ED 22:26 → EDINP 03-23 01:52 → 2N 03-25 00:40

== ENCOUNTER 2024-06-17 20:55 | Inpatient (IN) ==
[2024-06-17 21:50] LABS: Albumin Globulin Ratio 1.6 (0.9-2); Albumin Level 4.4 gm/dl (3.4-5.0); BUN Creatinine Ratio 18.6 (10-20); Bilirubin,Total 0.5 mg/dl (0.2-1.0); Calcium 9.3 mg/dl (8.6-10.3); Creatinine Clr Calc Pharmacy 43.2 ml/min; Globulin 2.7 gm/dl (2.5-4.0); Total Protein 7.1 gm/dl (6.0-8.3)
[2024-06-17] MEDS: methylPREDNISolone 125 MG/2 ML VIAL IV STA (21:52)
[2024-06-17] MEDS: ALBUT/IPRATROP 3MG/0.5MG NEB 3 ML VIAL NEB STA (21:52)
[2024-06-17 22:03] LABS: HCO3 VBG 28 mmol/L; Oxygen Saturation VBG 96.5 %; PCO2 VBG 37 mmHg (38-50); PO2 VBG 72 mmHg; pH VBG 7.48 (7.36-7.41)
[2024-06-17 22:13] LABS: Troponin I High Sensitivity 24.9 pg/ml (0-14)
[2024-06-17 22:16] LABS: Adenovirus PCR Not Detected (NotDetected); Bordetella parapertussis PCR Not Detected (NotDetected); Bordetella pertussis PCR Not Detected (NotDetected); Chlamydia pneumoniae PCR Not Detected (NotDetected); Coronavirus 229E PCR Not Detected (NotDetected); Coronavirus CoV-2 (COVID19)PCR Not Detected (NotDetected); Coronavirus HKU1 PCR Not Detected (NotDetected); Coronavirus NL63 PCR Not Detected (NotDetected); Coronavirus OC43PCR Not Detected (NotDetected); Human Metapneumovirus PCR Not Detected (NotDetected); Influenza A (H1 2009) PCR DETECTED (NotDetected); Influenza B PCR Not Detected (NotDetected); Mycoplasma pneumoniae PCR Not Detected (NotDetected); Parainfluenza Virus 1 PCR Not Detected (NotDetected); Parainfluenza Virus 2 PCR Not Detected (NotDetected); Parainfluenza Virus 3 PCR Not Detected (NotDetected); Parainfluenza Virus 4 PCR Not Detected (NotDetected); Respiratory Syncytial VirusPCR Not Detected (NotDetected); Rhinovirus/Enterovirus PCR Not Detected (NotDetected)
[2024-06-17 22:21] LABS: Basophils # (auto) 0.05 K/uL (0.00-0.20); Basophils % (auto) 0.6 %; Eosinophils # (auto) 0.01 K/uL (0.00-0.50); Eosinophils % (auto) 0.1 %; Hematocrit (blood only) 37.2 % (37.0-47.0); Hemoglobin 12.7 g/dl (12.0-16.0); Immature Granulocytes # (auto) 0.02 K/uL (0.01-0.20); Immature Granulocytes % (auto) 0.2 %; Lymphocytes # (auto) 0.36 K/uL (1.20-3.40); Lymphocytes % (auto) 4.4 %; Mean Corpuscular Hemoglobin 31.4 pg (25.0-34.0); Mean Corpuscular Hgb Conc 34.1 g/dL (32.0-36.0); Mean Corpuscular Volume 92.1 fL (80.0-100.0); Mean Platelet Volume 11.2 fL (9.4-12.4); Monocytes # (auto) 1.06 K/uL (0.11-0.59); Monocytes % (auto) 13.1 %; Neutrophils % (auto) 81.6 %; Platelet Count 221 K/uL (130-400); RDW Coefficient of Variation 15.7 % (11.5-14.5); RDW Standard Deviation 53.4 fL (36.4-46.3); Red Blood Count 4.04 M/uL (4.20-5.40)
--- NOTE | 2024-06-17 22:35 | Emergency Department Note ---
History of Present Illness General Chief Complaint: Flu Like Symptoms Stated Complaint: COUGH, NAUSEA, FEVER, FATIGUE Time Seen by Provider: 06/17/24 21:30 History of Present Illness Provider Complaint: shortness of breath and cough Onset (ago): day(s) (1) Severity: moderate Consistency/Duration: + progressively worsening Relieved By: + nothing Exacerbated By: + exertion and + coughing Known history of: asthma and congestive heart failure Associated symptoms: + fever (Tmax 101), + wheezing, + sputum production and + chest congestion; no palpitations, no hemoptysis, no abdominal pain or no rash Related Data Home oxygen amount: none Home Medications Medication Instructions Recorded Confirmed Type Calcium/Vitamin D/Magnesium 1 tab PO BID 03/22/22 03/23/22 History acetaminophen 650 mg 1,300 mg PO BID PRN Pain 03/22/22 03/23/22 History tablet,extended release amlodipine 5 mg tablet 5 mg PO QAM 03/22/22 03/23/22 History amoxicillin 500 mg capsule 2,000 mg PO DIRECTED PRN PRIOR 03/22/22 03/23/22 History TO DENTAL PROCEDURES ascorbic acid (vitamin C) 500 mg 500 mg PO BID 03/22/22 03/23/22 History tablet (Vitamin C) atenolol 25 mg tablet 25 mg PO QAM 03/22/22 03/23/22 History echinacea 380 mg capsule 760 mg PO DAILY 03/22/22 03/23/22 History fluticasone propionate 220 2 puff inhalation BID 03/22/22 03/23/22 History mcg/actuation HFA aerosol inhaler (Flovent HFA) furosemide 40 mg tablet 80 mg PO QAM 03/22/22 03/23/22 History glucosamine sulf dipotassium Cl 1 tab PO BID 03/22/22 03/23/22 History 500 mg-chondroitin sulf 400 mg tablet (Glucosamine-Chondroitin DS) levothyroxine 112 mcg tablet 112 mcg PO QAM 03/22/22 03/23/22 History multivitamin 1 tab PO QPM 03/22/22 03/23/22 History potassium chloride 20 mEq 20 meq PO Q OTHER DAY 03/22/22 03/23/22 History tablet,extended release simvastatin 20 mg tablet 20 mg PO QAM 03/22/22 03/23/22 History turmeric root extract 500 mg 1,000 mg PO BID 03/22/22 03/23/22 History capsule warfarin 1 mg tablet 0 mg PO QPM 03/22/22 03/23/22 History zinc gluconate 50 mg tablet 50 mg PO DAILY 03/23/22 03/23/22 History Allergies Allergy/AdvReac Type Severity Reaction Status Date / Time fexofenadine Allergy Unknown UNKNOWN Verified 03/22/22 23:48 tramadol AdvReac Intermediate DIZZINESS,N Verified 03/22/22 23:48 AUSEA aspirin AdvReac Unknown NOT TO Verified 03/22/22 23:48 TAKE BECAUSE ON WARFARIN Past Med/Surg History Problem List Influenza (Acute) Hypokalemia (Acute) Hypoxia (Acute) CHF (congestive heart failure) (Acute) SOB (shortness of breath) (Acute) COVID-19 (Acute) HTN (hypertension) Right knee DJD Total knee replacement status Medical History Atrial fibrillation COVID-19 CHF (congestive heart failure) Social History Smoking Status: Never smoker Hx Alcohol Use: No Hx Substance Use: No Preferred Language: Luxembourgish Communication Ability: Effective Supervisor Matrix Required: No Beliefs That Will Affect Care: Advent Current Living Situation: Alone Current Living Situation Comment: APARTMENT Feels Safe at Home: Yes Assistive Devices: Cane and Walker Physical Exam 2 Vital Signs: Vital Signs - 24 hr 06/17/24 21:00 06/17/24 21:41 Temperature 37.4 C Temperature Source Oral Pulse Rate 110 H 93 H Respiratory Rate 20 Respiratory Effort / Characteristics Non-Labored Sponta neous Respiratory Depth Normal Blood Pressure 122/73 Blood Pressure Ana Maria n 89 Pulse Oximetry 87 L Oxygen Delivery Me thod Room Air Sepsis Recent Feve r Within 48 Hours No Sepsis New/Unexpla ined Change in Men kirstie Status No Sepsis Action Take n by Nursing No Action Required Physical Exam: Physical Exam GENERAL: oriented to person, place, and time. appears well-developed and well- nourished. HENT: Exam performed. - Head: Normocephalic and atraumatic. EYES: Conjunctivae and EOM are normal. Right eye exhibits no discharge. Left eye exhibits no discharge. No scleral icterus. NECK: Normal range of motion. Neck supple. No JVD present. CV: Normal rate, regular rhythm, normal heart sounds and intact distal pulses. There is no peripheral edema. Palpable radial pulses bue. PULM/CHEST: Expiratory wheezes bilaterally. ABD: The abdomen is soft. There is no tenderness. NEURO: Motor and sensation grossly intact. SKIN: Skin is warm and dry. He is not diaphoretic. PSYCH: normal mood and affect. Behavior is normal. Judgment and thought content normal. Course Course 2129: The patient was evaluated in room B11A. A complete history and physical exam was performed Cardiac monitoring: An order was placed for continuous cardiac monitoring. The monitor shows a rate of 100 with sinus rhythm interpreted by me Patient was hypoxic on room air. Supplemental oxygen was applied via nasal cannula to per the patient oxygen saturation. 2231: Vital signs stable supplemental oxygen via nasal cannula. Chest x-ray shows cardiomegaly with cephalization similar to her previous x-ray from 2021. Patient's high sensitive troponin proBNP is elevated. Lasix 40 mg ordered for the patient. Patient is also positive for influenza. Tamiflu ordered for the patient. Patient be admitted to the [facility] team. Discussed case with Dr. Calixto will evaluate the patient for admission. Administered Medications Discontinued Medications Albuterol (Albut/Ipratrop 3mg/0.5mg Neb 3 Ml Vial) 3 ml NEB NOW STA; Protocol Stop: 06/17/24 21:42 Last Admin: 06/17/24 21:52 Dose: 3 ml Documented By: [facility] Methylprednisolone (Methylprednisolone 125 Mg/2 Ml Vial) 125 mg IV NOW STA Stop: 06/17/24 21:42 Last Admin: 06/17/24 21:52 Dose: 125 mg Documented By: [facility] Medical Decision Making Laboratory Data Attestation: I reviewed the patient's lab results. 06/17/24 21:16 06/17/24 21:16 Lab Results 06/17/24 06/17/24 06/17/24 Range/Units 21:16 21:47 21:49 WBC 8.10 (4.8-10.8) K/ul RBC 4.04 L (4.20-5.40) M/uL Hgb 12.7 (12.0-16.0) g/dl Hct 37.2 (37.0-47.0) % MCV 92.1 (80.0-100.0) fL MCH 31.4 (25.0-34.0) pg MCHC 34.1 (32.0-36.0) g/dL RDW Std Deviation 53.4 H (36.4-46.3) fL RDW Coeff of Migel 15.7 H (11.5-14.5) % Plt Count 221 (130-400) K/uL MPV 11.2 (9.4-12.4) fL Immature Gran % (Auto) 0.2 % Neut % (Auto) 81.6 % Lymph % (Auto) 4.4 % Fallon % (Auto) 13.1 % Eos % (Auto) 0.1 % Baso % (Auto) 0.6 % Neut # (Auto) 6.60 H (1.40-6.50) K/uL Lymph # (Auto) 0.36 L (1.20-3.40) K/uL Fallon # (Auto) 1.06 H (0.11-0.59) K/uL Eos # (Auto) 0.01 (0.00-0.50) K/uL Baso # (Auto) 0.05 (0.00-0.20) K/uL Immature Gran # (Auto) 0.02 (0.01-0.20) K/uL VBG pH 7.48 H (7.36-7.41) VBG pCO2 37 L (38-50) mmHg VBG pO2 72 mmHg VBG HCO3 28 mmol/L VBG O2 Saturation 96.5 % VBG Base Excess 4.0 mEq/L Sodium 137 (136-145) mmol/L Potassium 4.0 (3.5-5.1) mmol/L Chloride 101 (98-107) mmol/L Carbon Dioxide 28 (21-32) mmol/L Anion Gap 8 (3-11) BUN 13 (6-23) mg/dl Creatinine 0.70 (0.6-1.2) mg/dl Est Cr Clr Drug Dosing 43.2 ml/min eGFR 84.70 BUN/Creatinine Ratio 18.6 (10-20) Glucose 127 H (70-99(Fasting)) mg/dl Calcium 9.3 (8.6-10.3) mg/dl Total Bilirubin 0.5 (0.2-1.0) mg/dl AST 37 (13-39) U/L ALT 17 (7-52) U/L Alkaline Phosphatase 71 (34-104) U/L Troponin I High Sens 24.9 H (0-14) pg/ml B-Natriuretic Peptide 196 H (0-100) pg/ml Total Protein 7.1 (6.0-8.3) gm/dl Albumin 4.4 (3.4-5.0) gm/dl Globulin 2.7 (2.5-4.0) gm/dl Albumin/Globulin Ratio 1.6 (0.9-2) Lipase 36 (11-82) U/L Nasal Influ A H1 2008 PCR DETECTED A (NotDetected) Adenovirus (PCR) Not Detected (NotDetected) B. pertussis DNA (PCR) Not Detected (NotDetected) B.parapertussis DNA PCR Not Detected (NotDetected) C. pneumoniae DNA (PCR) Not Detected (NotDetected) Coronavirus OC43 (PCR) Not Detected (NotDetected) Coronavirus HKU1 (PCR) Not Detected (NotDetected) Coronavirus 229E (PCR) Not Detected (NotDetected) SARS-CoV-2 (PCR) Not Detected (NotDetected) Coronavirus NL63 (PCR) Not Detected (NotDetected) Human Metapneumovir PCR Not Detected (NotDetected) Influenza Type B (PCR) Not Detected (NotDetected) M. pneumoniae (PCR) Not Detected (NotDetected) Parainfluenza 1 (PCR) Not Detected (NotDetected) Parainfluenza 2 (PCR) Not Detected (NotDetected) Parainfluenza 3 (PCR) Not Detected (NotDetected) Parainfluenza 4 (PCR) Not Detected (NotDetected) RSV (PCR) Not Detected (NotDetected) Entero/Rhino (PCR) Not Detected (NotDetected) Imaging Data Attestation: I personally reviewed and interpreted this imaging study as follows: My Impression: Chest x-ray: Cardiomegaly with cephalization similar to the chest x-ray from 2021 ECG Data Attestation: I personally reviewed and interpreted this ECG as follows: Interpretation: EKG #1 at 2112: Atrial fibrillation with rate of 100. QRS and QTc intervals within normal limits. No ST elevation or ST depression. Artifact in lead V1. EKG #2 at 2141:Atrial fibrillation with rate of 85. QRS and QTc intervals within normal limits. No ST elevation or ST depression. Artifact in lead V1. [facility] Narrative 2129: The patient was evaluated in room B11A. A complete history and physical exam was performed Cardiac monitoring: An order was placed for continuous cardiac monitoring. The monitor shows a rate of 100 with sinus rhythm interpreted by me Patient was hypoxic on room air. Supplemental oxygen was applied via nasal cannula to per the patient oxygen saturation. 2231: Vital signs stable supplemental oxygen via nasal cannula. Chest x-ray shows cardiomegaly with cephalization similar to her previous x-ray from 2021. Patient's high sensitive troponin proBNP is elevated. Lasix 40 mg ordered for the patient. Patient is also positive for influenza. Tamiflu ordered for the patient. Patient be admitted to the [facility] team. Discussed case with Dr. Calixto will evaluate the patient for admission. Impression & Plan Hypoxia, CHF (congestive heart failure), Influenza Critical Care Time Critical Care Time: Yes Total Critical Care Time: 58 I have personally spent greater than 58 minutes of critical care time in the direct management of this patient. This includes bedside care, interpretation of diagnostic studies, and testing, discussion with consultants, patient, and family members, and other required patient management activities. This 58 minutes is in excess of all separately billable procedures. Discharge Plan Visit Data Chief Complaint: Flu Like Symptoms Stated Complaint: COUGH, NAUSEA, FEVER, FATIGUE ED Provider: Bishop Zurita Discharge Problem: Hypoxia, CHF (congestive heart failure), Influenza Patient Disposition: Admitted As Inpatient Forms Stand Alone Forms: My [facility] Prescriptions Prescriptions: No Action multivitamin Tablet 1 tab PO QPM amoxicillin 500 mg Capsule 2,000 mg PO DIRECTED PRN (Reason: PRIOR TO DENTAL PROCEDURES) furosemide 40 mg tablet 80 mg PO QAM echinacea 380 mg Capsule 760 mg PO DAILY Rx Instructions: administer with meals atenolol 25 mg tablet 25 mg PO QAM amlodipine 5 mg tablet 5 mg PO QAM acetaminophen 650 mg Tablet Extended Release 1,300 mg PO BID PRN (Reason: Pain) ascorbic acid (vitamin C) [Vitamin C] 500 mg Tablet 500 mg PO BID simvastatin 20 mg tablet 20 mg PO QAM fluticasone propionate [Flovent HFA] 220 mcg/actuation Hfa Aerosol Inhaler 2 puff INHALATION BID warfarin 1 mg tablet 0 mg PO QPM Rx Instructions: PER PT "TAKES 4.5 MG QPM, INR 03/22/22-3.4, INSTRUCTED TO HOLD WARFARIN 03/22 & 03/23, THEN RESUME REGULAR DOSE ON 03/24". levothyroxine 112 mcg tablet 112 mcg PO QAM glucosamine herrera 2KCl-chondroit [Glucosamine-Chondroitin DS] 500-400 mg Tablet 1 tab PO BID turmeric root extract 500 mg Capsule 1,000 mg PO BID potassium chloride 20 mEq Tablet Extended Release 20 meq PO Q OTHER DAY Calcium/Vitamin D/Magnesium 1 tab PO BID zinc gluconate 50 mg Tablet 50 mg PO DAILY Referrals Referrals: Kierra Peoples CRNP [Primary Care Provider] -
--- NOTE | 2024-06-17 23:02 | History & Physical Report ---
Date of Service June 17, 2024 Assessment & Plan (1) Acute hypoxemic respiratory failure: Plan: Acute hypoxemic respiratory failure Multifactorial Complicated bronchitis/influenza illness, no sepsis for now Mild CHF, history of diastolic dysfunction Troponin elevation secondary to above hx CAD as per records A-fib/atrial flutter, INR therapeutic on Coumadin 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 hypertension, stable hyperlipidemia, on statin Rx bronchial asthma, no overt wheezing on exam hypothyroidism, euthyroid as of today's TSH Hyperglycemia rule out DM Admit to PCU Supplemental O2 Doxycycline, Tamiflu course Monitor response to initial dose diuretic Rx Strict I/Os, daily weights, CHF education Update TTE Check hemoglobin A1c DVT prophylaxis. Coumadin INR goal between 2 and 3 Full code Patient son requesting updates providers. Mr. Benton Casillas, contact #[phone]. Text document was generated using [email or web address] voice recognition software. It may contain grammatical or spelling errors. Kindly contact undersigned for clarification of any documentation item in question. History of Present Illness Chief Complaint: Shortness of breath Primary Care Provider: BEE Jurado History obtained from patient, family, and records. Medical history significant for chronic diastolic heart failure (EF 65%, TTE 2021), CAD, A-fib on Coumadin, moderate to severe MR, status post bioprosthetic AVR, hypertension, hyperlipidemia, bronchial asthma, hypothy roidism. Few days history of junky cough symptoms associated with SOB. No chest pain or fluid retention. No overt wheezing at home as per patient. Sick contacts at a recent wedding over the weekend. O2 sats 80s upon arrival at the ER. Tamiflu and Lasix administered at the ER. Medical History as above Surgical History : Knee surgery, bioprosthetic AVR, salpingo-oophorectomy Family History : Heart disease, thyroid disease Personal/Social history : Non-smoker, no EtOH intake, retired pharmacy employee Allergies Allergy/AdvReac Type Severity Reaction Status Date / Time fexofenadine Allergy Unknown UNKNOWN Verified 06/17/24 23:30 celecoxib [From Celebrex] Allergy Unknown Verified 06/17/24 23:30 tramadol AdvReac Intermediate DIZZINESS,N Verified 06/17/24 23:30 AUSEA aspirin AdvReac Unknown NOT TO Verified 06/17/24 23:30 TAKE BECAUSE ON WARFARIN Home Medications Medication Instructions Recorded Confirmed Type amlodipine 5 mg tablet 5 mg PO QAM 03/22/22 06/17/24 History atenolol 25 mg tablet 25 mg PO QAM 03/22/22 06/17/24 History potassium chloride 20 mEq 20 meq PO DAILY 03/22/22 06/17/24 History tablet,extended release simvastatin 20 mg tablet 20 mg PO QAM 03/22/22 06/17/24 History acetaminophen 650 mg 650 mg PO Q6H PRN Pain 06/17/24 06/17/24 History tablet,extended release amoxicillin 500 mg capsule 2,000 mg PO .UD PRN Prophylaxis 06/17/24 06/17/24 History aspirin 81 mg tablet,delayed 81 mg PO DAILY 06/17/24 06/17/24 History release ciclopirox 8 % topical solution 1 applic topical DAILY 06/17/24 06/17/24 History furosemide 40 mg tablet 40 mg PO .QAFTERNOON 06/17/24 06/17/24 History furosemide 40 mg tablet 80 mg PO QAM 06/17/24 06/17/24 History levothyroxine 125 mcg tablet 125 mcg PO DAILYBB 06/17/24 06/17/24 History loratadine 10 mg tablet 10 mg PO DAILY 06/17/24 06/17/24 History warfarin 4 mg tablet 4 mg PO 3XWK 06/17/24 06/18/24 History warfarin 5 mg tablet 5 mg PO 4XWK 06/18/24 06/18/24 History Past Med/Surg History Problem List Acute hypoxemic respiratory failure Influenza (Acute) Hypokalemia (Acute) Hypoxia (Acute) CHF (congestive heart failure) (Acute) SOB (shortness of breath) (Acute) COVID-19 (Acute) HTN (hypertension) Right knee DJD Total knee replacement status Medical History Atrial fibrillation COVID-19 CHF (congestive heart failure) Social History Smoking Status: Never smoker Hx Alcohol Use: No Hx Substance Use: No Preferred Language: Frisian Communication Ability: Effective Lan Support Specialist Required: No Beliefs That Will Affect Care: None Current Living Situation: Alone Current Living Situation Comment: APARTMENT Feels Safe at Home: Yes Safety Concerns: Feels Safe At This Time Assistive Devices: Cane, Denture - Upper, Denture - Lower, Glasses and Walker Review of Systems Review of Systems: As per HPI, all other systems reviewed and negative Physical Exam Physical Exam: GENERAL: Comfortable, pleasant, obese, no respiratory distress SKIN: Normal color, warm HEENT: Bespectacled, pink palpebral conjunctivae, no ptosis, dry buccal mucosa, nasal cannula in place NECK : Supple, no tenderness CHEST : Decreased breath sounds, no tenderness HEART : RRR, systolic murmur ABDOMEN: Some distention, nontender EXTREMITIES : Minimal LE swelling, without tenderness, palpable pulses, no other conspicuous deformities noted NEUROLOGIC : Coherent, no facial asymmetry, no other gross focality Results & Data Results & Data Vital Signs (Past 12 Hours) Vital Signs Temp Pulse Resp BP Pulse Ox O2 Del Method 06/17/24 21:41 93 H 06/17/24 21:00 37.4 C 110 H 20 122/73 87 L Room Air Laboratory Results Laboratory Results WBC 8.10 K/ul (4.8-10.8) 06/17/24 21:16 RBC 4.04 M/uL (4.20-5.40) L 06/17/24 21:16 Hgb 12.7 g/dl (12.0-16.0) 06/17/24 21:16 Hct 37.2 % (37.0-47.0) 06/17/24 21:16 MCV 92.1 fL (80.0-100.0) 06/17/24 21:16 MCH 31.4 pg (25.0-34.0) 06/17/24 21:16 MCHC 34.1 g/dL (32.0-36.0) 06/17/24 21:16 RDW Std Deviation 53.4 fL (36.4-46.3) H 06/17/24 21:16 RDW Coeff of Migel 15.7 % (11.5-14.5) H 06/17/24 21:16 Plt Count 221 K/uL (130-400) 06/17/24 21:16 MPV 11.2 fL (9.4-12.4) 06/17/24 21:16 Immature Gran % (Auto) 0.2 % 06/17/24 21:16 Neut % (Auto) 81.6 % 06/17/24 21:16 Lymph % (Auto) 4.4 % 06/17/24 21:16 [place] % (Auto) 13.1 % 06/17/24 21:16 Eos % (Auto) 0.1 % 06/17/24 21:16 Baso % (Auto) 0.6 % 06/17/24 21:16 Neut # (Auto) 6.60 K/uL (1.40-6.50) H 06/17/24 21:16 Lymph # (Auto) 0.36 K/uL (1.20-3.40) L 06/17/24 21:16 [place] # (Auto) 1.06 K/uL (0.11-0.59) H 06/17/24 21:16 Eos # (Auto) 0.01 K/uL (0.00-0.50) 06/17/24 21:16 Baso # (Auto) 0.05 K/uL (0.00-0.20) 06/17/24 21:16 Immature Gran # (Auto) 0.02 K/uL (0.01-0.20) 06/17/24 21:16 VBG pH 7.48 (7.36-7.41) H 06/17/24 21:49 VBG pCO2 37 mmHg (38-50) L 06/17/24 21:49 VBG pO2 72 mmHg 06/17/24 21:49 VBG HCO3 28 mmol/L 06/17/24 21:49 VBG O2 Saturation 96.5 % 06/17/24 21:49 VBG Base Excess 4.0 mEq/L 06/17/24 21:49 Sodium 137 mmol/L (136-145) 06/17/24 21:16 Potassium 4.0 mmol/L (3.5-5.1) 06/17/24 21:16 Chloride 101 mmol/L (98-107) 06/17/24 21:16 Carbon Dioxide 28 mmol/L (21-32) 06/17/24 21:16 Anion Gap 8 (3-11) 06/17/24 21:16 BUN 13 mg/dl (6-23) 06/17/24 21:16 Creatinine 0.70 mg/dl (0.6-1.2) 06/17/24 21:16 Est Cr Clr Drug Dosing 43.2 ml/min 06/17/24 21:16 eGFR 84.70 06/17/24 21:16 BUN/Creatinine Ratio 18.6 (10-20) 06/17/24 21:16 Glucose 127 mg/dl (70-99(Fasting)) H 06/17/24 21:16 Calcium 9.3 mg/dl (8.6-10.3) 06/17/24 21:16 Total Bilirubin 0.5 mg/dl (0.2-1.0) 06/17/24 21:16 AST 37 U/L (13-39) 06/17/24 21:16 ALT 17 U/L (7-52) 06/17/24 21:16 Alkaline Phosphatase 71 U/L (34-104) 06/17/24 21:16 Troponin I High Sens 24.9 pg/ml (0-14) H 06/17/24 21:16 B-Natriuretic Peptide 196 pg/ml (0-100) H 06/17/24 21:47 Total Protein 7.1 gm/dl (6.0-8.3) 06/17/24 21:16 Albumin 4.4 gm/dl (3.4-5.0) 06/17/24 21:16 Globulin 2.7 gm/dl (2.5-4.0) 06/17/24 21:16 Albumin/Globulin Ratio 1.6 (0.9-2) 06/17/24 21:16 Lipase 36 U/L (11-82) 06/17/24 21:16 Nasal Influ A H1 2009 PCR DETECTED (NotDetected) A 06/17/24 21:16 Adenovirus (PCR) Not Detected (NotDetected) 06/17/24 21:16 B. pertussis DNA (PCR) Not Detected (NotDetected) 06/17/24 21:16 B.parapertussis DNA PCR Not Detected (NotDetected) 06/17/24 21:16 C. pneumoniae DNA (PCR) Not Detected (NotDetected) 06/17/24 21:16 Coronavirus OC43 (PCR) Not Detected (NotDetected) 06/17/24 21:16 Coronavirus HKU1 (PCR) Not Detected (NotDetected) 06/17/24 21:16 Coronavirus 229E (PCR) Not Detected (NotDetected) 06/17/24 21:16 SARS-CoV-2 (PCR) Not Detected (NotDetected) 06/17/24 21:16 Coronavirus NL63 (PCR) Not Detected (NotDetected) 06/17/24 21:16 Human Metapneumovir PCR Not Detected (NotDetected) 06/17/24 21:16 Influenza Type B (PCR) Not Detected (NotDetected) 06/17/24 21:16 M. pneumoniae (PCR) Not Detected (NotDetected) 06/17/24 21:16 Parainfluenza 1 (PCR) Not Detected (NotDetected) 06/17/24 21:16 Parainfluenza 2 (PCR) Not Detected (NotDetected) 06/17/24 21:16 Parainfluenza 3 (PCR) Not Detected (NotDetected) 06/17/24 21:16 Parainfluenza 4 (PCR) Not Detected (NotDetected) 06/17/24 21:16 RSV (PCR) Not Detected (NotDetected) 06/17/24 21:16 Entero/Rhino (PCR) Not Detected (NotDetected) 06/17/24 21:16 Diagnostic Findings Chest x-ray as per my interpretation cardiomegaly, minimal congestion EKG as per my interpretation :Rate 105, atrial flutter, normal axis, T wave abnormalities inferior leads
[2024-06-17] MEDS ORDERED: BENZONATATE 100 MG CAPSULE PO PRN (23:04)
[2024-06-17] MEDS ORDERED: PROMETHAZINE 6.25 MG/50.25 ML BAG IV PRN (23:04)
[2024-06-17] MEDS: OSELTAMIVIR PHOSPHATE 75 MG CAP PO STA (23:15)
[2024-06-17] MEDS: FUROSEMIDE 40 MG/4 ML VIAL IV ONE (23:15)
[2024-06-17 23:16] LABS: Estimated Average Glucose 111 mg/dl; Hemoglobin A1C 5.5 % (4.5-5.6)
[2024-06-17 23:22] LABS: Thyroid Stimulating Hormone 0.545 uIu/ml (0.300-4.500)
[2024-06-17 23:32] LABS: INR 2.5 (0.9-1.1); Prothrombin Time 24.9 Seconds (9.0-12.0)
[2024-06-17] MEDS: DOXYCYCLINE HYCLATE 100 MG in DEXTROSE 5% MINI-B 100 ML IV STA (23:56)
[2024-06-18 00:19] LABS: Appearance Urine Clear (Clear); Bacteria Urine Automated None Seen (None Seen); Bilirubin Urine Negative (Negative); Blood Urine Negative (Negative); Color Urine Yellow; Epithelial Cell Urine Auto 0-2 /hpf (0-2); Glucose Urine UA Negative (Negative); Ketones Urine Trace (Negative); Leukocyte Esterase Urine Trace (Negative); Nitrite Urine Negative (Negative); Protein Urine Negative (Negative); RBC Urine Automated 0-2 /hpf (0-2); Specific Gravity Urine 1.018 (1.000-1.030); Urobilinogen Urine Negative (Negative); WBC Urine Automated 0-5 /hpf (0-5); pH Urine 6.5 (4.5-7.5)
--- NOTE | 2024-06-18 00:58 | XRay Report ---
Exam(s): XR CXR 1 VIEW EXAM: XR Chest, 1 View CLINICAL HISTORY: Reason for exam: sob. TECHNIQUE: Frontal view of the chest. COMPARISON: XR Chest dated 03/25/2022 FINDINGS: Lungs: Unremarkable. No consolidation. Pleural space: Unremarkable. No pneumothorax. Heart: Cardiomegaly. Stable. Prosthetic aortic valve. Mediastinum: Unremarkable. Normal mediastinal contour. Bones/joints: Median sternotomy wires, stable. No acute fracture. IMPRESSION: 1. No evidence of acute cardiopulmonary process. 2. Stable cardiomegaly. Electronically signed by: Ashlee Olmos M.D. 06/18/24 00:56 AM
[2024-06-18 06:30] LABS: Basophils # (auto) 0.01 K/uL (0.00-0.20); Basophils % (auto) 0.2 %; Hematocrit (blood only) 36.8 % (37.0-47.0); Hemoglobin 12.5 g/dl (12.0-16.0); Immature Granulocytes # (auto) 0.02 K/uL (0.01-0.20); Immature Granulocytes % (auto) 0.4 %; Lymphocytes # (auto) 0.56 K/uL (1.20-3.40); Lymphocytes % (auto) 12.1 %; Mean Corpuscular Hemoglobin 31.5 pg (25.0-34.0); Mean Corpuscular Volume 92.7 fL (80.0-100.0); Mean Platelet Volume 10.8 fL (9.4-12.4); Monocytes # (auto) 0.05 K/uL (0.11-0.59); Monocytes % (auto) 1.1 %; Neutrophils # (auto) 3.99 K/uL (1.40-6.50); Neutrophils % (auto) 86.2 %; Platelet Count 197 K/uL (130-400); RDW Coefficient of Variation 15.7 % (11.5-14.5); RDW Standard Deviation 53.3 fL (36.4-46.3); Red Blood Count 3.97 M/uL (4.20-5.40); White Blood Count 4.63 K/ul (4.8-10.8)
[2024-06-18 06:40] LABS: BUN Creatinine Ratio 23.2 (10-20); Calcium 9.2 mg/dl (8.6-10.3); Potassium 3.8 mmol/L (3.5-5.1)
[2024-06-18 06:47] LABS: Troponin I High Sensitivity 31.8 pg/ml (0-14)
[2024-06-18 06:52] LABS: INR 2.5 (0.9-1.1); Prothrombin Time 25.3 Seconds (9.0-12.0)
[2024-06-18] MEDS: LEVOTHYROXINE SODIUM 125 MCG TABLET PO SCH (06:53)
[2024-06-18] MEDS: OSELTAMIVIR PHOSPHATE SUSP 30 MG/5 ML UDP PO SCH (09:51)
[2024-06-18] MEDS: LORATADINE 10 MG TAB PO SCH (09:51)
[2024-06-18] MEDS: FUROSEMIDE 80 MG TAB PO SCH (09:52)
[2024-06-18] MEDS: SIMVASTATIN 20 MG TAB PO SCH (09:52)
[2024-06-18] MEDS: DOXYCYCLINE HYCLATE 100 MG CAP PO SCH (09:52)
[2024-06-18] MEDS: ASPIRIN 81 MG ECTAB PO SCH (09:52)
[2024-06-18] MEDS: amLODIPine BESYLATE 5 MG TAB PO SCH (09:52)
[2024-06-18] MEDS: ATENOLOL 25 MG TABLET PO SCH (09:52)
[2024-06-18] MEDS: POTASSIUM CHLORIDE CRTAB 20 MEQ TABCR PO SCH (09:55)
[2024-06-18] MEDS: ACETAMINOPHEN 325 MG TAB PO PRN (09:55)
--- NOTE | 2024-06-18 14:04 | Electrocardiogram Report ---
Test Reason : Blood Pressure : */* mmHG Vent. Rate : 101 BPM Atrial Rate : 388 BPM P-R Int : * ms QRS Dur : 92 ms QT Int : 400 ms P-R-T Axes : * 83 17 degrees QTcB Int : 518 ms Atrial fibrillation with rapid ventricular response Nonspecific ST abnormality Abnormal ECG When compared with ECG of 22-Mar-2022 22:43, Nonspecific T wave abnormality has replaced inverted T waves in Anterior leads QT has lengthened Confirmed by Ken Nava ([id number]) on 06/18/2024 2:04:13 PM Referred By: REFERRED SELF Confirmed By: Ken Nava
--- NOTE | 2024-06-18 14:23 | Hospitalist Progress Note ---
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 hypertension, stable hyperlipidemia, on statin Rx bronchial asthma, no overt wheezing on exam hypothyroidism, euthyroid as of today's TSH Plan Feeding/fluids: regular Analgesia: tylenol Sedation: na Thromboprophylaxis: lovenox Head up position: na Ulcer prophylaxis: na Glycemic control: na Spontaneous breathing trial: na Bowel care: miralax prn Indwelling catheter removal: na Deescalation of antibiotics: ceftriaxone/doxy I spent a total of 50 minutes in direct patient care, including [id number] time with the patient and/or family, reviewing medical records, ordering and reviewing diagnostic tests, and coordinating care with other healthcare providers. This time includes: history taking, physical examination, medical decision making, counseling, ECG interpretation, imaging interpretation, lab interpretation, orders, and education, excluding time spent in the performance of separately billed services. Admission and Anticipated Discharge Date Admission Date: June 17, 2024 Subjective Patient seen and examined at bedside. Ms. Casillas doing better today. She states she feels weak. Denies chest pain, headache, other symptoms. Still SOB but improving. Review of Systems Review of Systems: CONSTITUTIONAL: weakness EYES: Patient denies any visual symptoms. EARS, NOSE, AND THROAT: No difficulties with hearing. No symptoms of rhinitis or sore throat. CARDIOVASCULAR: Patient denies chest pains, palpitations, orthopnea and paroxysmal nocturnal dyspnea. RESPIRATORY: shortness of breath, cough. GI: No nausea, vomiting, diarrhea, constipation, abdominal pain, hematochezia or melena. : No urinary hesitancy or dribbling. No nocturia or urinary frequency. No abnormal urethral discharge. MUSCULOSKELETAL: No myalgias or arthralgias. NEUROLOGIC: No chronic headaches, no seizures. Patient denies numbness, tingling or weakness. PSYCHIATRIC: Patient denies problems with mood disturbance. No problems with anxiety. ENDOCRINE: No excessive urination or excessive thirst. DERMATOLOGIC: Patient denies any rashes or skin changes. Physical Exam Physical Exam: Gen: A&O 3 NAD, some cachexia noted (despite BMI) HEENT: NCAT, EOMI, not icteric. External ears normal. No rhinorrhea. Moist mucous membranes. Neck: Supple, full range of motion, no observable masses, No meningeal sign. Lungs: trace rhonchi noted bilaterally CV: RRR, no edema. Abdomen: Soft, nondistended, No rebound tenderness. MSK: No joint swelling, no redness. Skin: No rashes, petechiae, lesions. Normal color per patient. Neuro: Normal Gait, Grossly intact. Psych: Appropriate for situation. Results & Data Results & Data Vital Signs (Past 12 Hours) Vital Signs Temp Pulse Resp BP Pulse Ox O2 Del Method O2 Flow Rate 06/18/24 10:47 36.8 C 98 H 19 109/65 93 Nasal Cannula 06/18/24 08:37 Room Air 06/18/24 08:02 37.1 C 74 19 117/69 98 Nasal Cannula 06/18/24 05:31 Nasal Cannula 2 Laboratory Results -personally reviewed, pH suggestive of respiratory alkalosis, creatinine around baseline Medications Administered Acetaminophen (Acetaminophen 325 Mg Tab) 650 mg PO QID PRN PRN Reason: pain/fever Stop: 07/17/24 23:04 Last Admin: 06/18/24 09:55 Dose: 650 mg Documented By: TIMO Amlodipine Besylate (Amlodipine Besylate 5 Mg Tab) [facility] [place]: 07/18/24 08:59 Last Admin: 06/18/24 09:52 Dose: 5 mg Documented By: TIMO Aspirin (Aspirin 81 Mg Ectab) 81 mg PO DAILY [facility] Stop: 07/18/24 08:59 Last Admin: 06/18/24 09:52 Dose: 81 mg Documented By: TIMO Atenolol (Atenolol 25 Mg Tablet) 25 mg PO QAM [facility] Stop: 07/18/24 08:59 Last Admin: 06/18/24 09:52 Dose: 25 mg Documented By: TIMO Doxycycline Hyclate (Doxycycline Hyclate 100 Mg Cap) 100 mg PO BID [facility] Stop: 06/23/24 08:59 Last Admin: 06/18/24 09:52 Dose: 100 mg Documented By: TIMO Furosemide (Furosemide 80 Mg Tab) 80 mg PO QAM [facility] Stop: 07/18/24 08:59 Last Admin: 06/18/24 09:52 Dose: 80 mg Documented By: TIMO Levothyroxine Sodium (Levothyroxine Sodium 125 Mcg Tablet) 125 mcg PO DAILYBB [facility] Stop: 07/18/24 06:29 Last Admin: 06/18/24 06:53 Dose: 125 mcg Documented By: KARAN Loratadine (Loratadine 10 Mg Tab) 10 mg PO DAILY [facility] Stop: 07/18/24 08:59 Last Admin: 06/18/24 09:51 Dose: 10 mg Documented By: TIMO Oseltamivir Phosphate (Oseltamivir Phosphate Susp 30 Mg/5 Ml Udp) 30 mg PO BID [facility]; Protocol Stop: 06/23/24 08:59 Last Admin: 06/18/24 09:51 Dose: 30 mg Documented By: TIMO Potassium Chloride (Potassium Chloride Crtab 20 Meq Tabcr) 20 meq PO DAILY [facility] Stop: 07/18/24 08:59 Last Admin: 06/18/24 09:55 Dose: 20 meq Documented By: TIMO Simvastatin (Simvastatin 20 Mg Tab) 20 mg PO QAM [facility] Stop: 07/18/24 08:59 Last Admin: 06/18/24 09:52 Dose: 20 mg Documented By: TIMO
[2024-06-18] MEDS: FUROSEMIDE 40 MG TAB PO SCH (15:04)
[2024-06-18] MEDS: cefTRIAXone SODIUM 2,000 MG/50 ML BAG IV SCH (16:31)
[2024-06-18] MEDS: OPTIRAY 320 100ml IV ONE (18:31)
--- NOTE | 2024-06-18 20:00 | CT Scan Report ---
EXAMINATION: Chest CT with CLINICAL HISTORY: Hypoxemia with exertion PRIORS: Chest x-ray 03/25/2022 TECHNIQUE: Contiguous axial images were obtained through the chest with the use of intravenous contrast. Sagittal and coronal reformations are supplied. FINDINGS: Median sternotomy wires present with postsurgical change of the heart noted. Severe cardiomegaly noted with dilatation of the left ventricle. Trachea is tortuous and patent. Gas present in the esophagus lumen. 2 prominent paratracheal lymph nodes noted in the mediastinum without pathologic adenopathy. No hilar adenopathy identified. In lung windows, chest is well-expanded. Moderate hypoventilatory change at the left lung base. A focal area of airspace consolidation noted, versus nodular density, measuring 1.2 x 1.2 cm on image 37, series 2 at the left lung base, possibly atelectasis. Calcified left lung pleural plaques are present Limited visualization of the upper abdomen demonstrates no acute abnormality. In bone windows, advanced osseous demineralization with kyphosis and degenerative change throughout the thoracic spine noted. IMPRESSION: 1. No CT evidence of an acute cardiopulmonary process. 2. Calcified pleural plaques in the left lung base with adjacent atelectasis. A focal area of airspace consolidation or nodular density present at the left lung base discussed above. 3. Postsurgical change of the heart with severe cardiomegaly, in particular the left atrium. Electronically signed by Martina Gastelum 06-18-2024 8:00 PM
[2024-06-18] MEDS: MELATONIN 3 MG TAB PO PRN (22:30)
[2024-06-19 06:07] LABS: Hematocrit (blood only) 36.7 % (37.0-47.0); Hemoglobin 12.2 g/dl (12.0-16.0); Mean Corpuscular Hemoglobin 31.3 pg (25.0-34.0); Mean Corpuscular Hgb Conc 33.2 g/dL (32.0-36.0); Mean Corpuscular Volume 94.1 fL (80.0-100.0); Platelet Count 197 K/uL (130-400); RDW Coefficient of Variation 15.9 % (11.5-14.5); RDW Standard Deviation 54.6 fL (36.4-46.3); White Blood Count 6.77 K/ul (4.8-10.8)
[2024-06-19 06:19] LABS: BUN Creatinine Ratio 33.3 (10-20); Creatinine Clr Calc Pharmacy 58.3 ml/min; Potassium 3.6 mmol/L (3.5-5.1)
[2024-06-19] MEDS: ENOXAPARIN INJ 40 MG/0.4 ML SYR SQ SCH (08:25)
--- NOTE | 2024-06-19 14:56 | Hospitalist Progress Note ---
Date of Service June 19, 2024 Assessment & Plan (1) Acute hypoxemic respiratory failure: Plan: Acute hypoxemic respiratory failure Influenza A -Multifactorial -Complicated bronchitis/influenza illness, no sepsis for now -only slightly improved today, suspect element of chronicity to patients hypoxia Plan: -tamiflu plus CAP coverage w/ ceftriaxone/doxy for 5 days given hospitalization -f/u echo results -PT/OT given patient weakness -will do 2-step for oxygen tomorrow, if still positive will need to go home on oxygen in short term Myocardial Injury -downtrending hx CAD as per records A-fib/atrial flutter, INR therapeutic on Coumadin 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 hypertension, stable hyperlipidemia, on statin Rx bronchial asthma, no overt wheezing on exam hypothyroidism, euthyroid as of today's TSH Plan Feeding/fluids: regular Analgesia: tylenol Sedation: na Thromboprophylaxis: lovenox Head up position: na Ulcer prophylaxis: na Glycemic control: na Spontaneous breathing trial: na Bowel care: miralax prn Indwelling catheter removal: na Deescalation of antibiotics: ceftriaxone/doxy I spent a total of 45 minutes in direct patient care, including [id number] time with the patient and/or family, reviewing medical records, ordering and reviewing diagnostic tests, and coordinating care with other healthcare providers. This time includes: history taking, physical examination, medical decision making, counseling, ECG interpretation, imaging interpretation, lab interpretation, orders, and education, excluding time spent in the performance of separately billed services. Admission and Anticipated Discharge Date Admission Date: June 17, 2024 Subjective Patient seen and examined at bedside. Patient doing okay today. Having trouble bringing up secretions. Review of Systems Review of Systems: CONSTITUTIONAL: weakness EYES: Patient denies any visual symptoms. EARS, NOSE, AND THROAT: No difficulties with hearing. No symptoms of rhinitis or sore throat. CARDIOVASCULAR: Patient denies chest pains, palpitations, orthopnea and paroxysmal nocturnal dyspnea. RESPIRATORY: shortness of breath, cough. GI: No nausea, vomiting, diarrhea, constipation, abdominal pain, hematochezia or melena. : No urinary hesitancy or dribbling. No nocturia or urinary frequency. No abnormal urethral discharge. MUSCULOSKELETAL: No myalgias or arthralgias. NEUROLOGIC: No chronic headaches, no seizures. Patient denies numbness, tingling or weakness. PSYCHIATRIC: Patient denies problems with mood disturbance. No problems with anxiety. ENDOCRINE: No excessive urination or excessive thirst. DERMATOLOGIC: Patient denies any rashes or skin changes. Physical Exam Physical Exam: Gen: A&O 3 NAD, some cachexia noted (despite BMI) HEENT: NCAT, EOMI, not icteric. External ears normal. No rhinorrhea. Moist mucous membranes. Neck: Supple, full range of motion, no observable masses, No meningeal sign. Lungs: trace rhonchi noted bilaterally, improved from prior CV: RRR, no edema. Abdomen: Soft, nondistended, No rebound tenderness. MSK: No joint swelling, no redness. Skin: No rashes, petechiae, lesions. Normal color per patient. Neuro: Normal Gait, Grossly intact. Psych: Appropriate for situation. Results & Data Results & Data Vital Signs (Past 12 Hours) Vital Signs Temp Pulse Resp BP Pulse Ox Pulse Ox Pulse Ox 06/19/24 12:49 92 93 06/19/24 12:28 36.7 C 79 19 112/69 93 06/19/24 08:48 36.8 C 78 16 110/61 95 06/19/24 08:35 06/19/24 03:26 36.7 C 77 16 131/82 95 Pulse Ox O2 Del Method O2 Flow Rate O2 Flow Rate O2 Flow Rate O2 Flow Rate 06/19/24 12:49 86 L 1 1 0 06/19/24 12:28 Nasal Cannula 06/19/24 08:48 Nasal Cannula 1 06/19/24 08:35 Nasal Cannula 1 06/19/24 03:26 Nasal Cannula 2 Laboratory Results -personally reviewed, creatinine at baseline, no evidence of leukocytosis Medications Administered Acetaminophen (Acetaminophen 325 Mg Tab) 650 mg PO QID PRN PRN Reason: pain/fever Stop: 07/17/24 23:04 Last Admin: 06/18/24 09:55 Dose: 650 mg Documented By: TIMO Amlodipine Besylate (Amlodipine Besylate 5 Mg Tab) [facility] [place] Stop: 07/18/24 08:59 Last Admin: 06/19/24 08:24 Dose: 5 mg Documented By: Admin: 06/18/24 09:52 Dose: 5 mg Documented By: TIMO Aspirin (Aspirin 81 Mg Ectab) 81 mg PO DAILY [facility] Stop: 07/18/24 08:59 Last Admin: 06/19/24 08:24 Dose: 81 mg Documented By: Admin: 06/18/24 09:52 Dose: 81 mg Documented By: TIMO Atenolol (Atenolol 25 Mg Tablet) 25 mg PO QAM [facility] Stop: 07/18/24 08:59 Last Admin: 06/19/24 08:25 Dose: 25 mg Documented By: Admin: 06/18/24 09:52 Dose: 25 mg Documented By: TIMO Doxycycline Hyclate (Doxycycline Hyclate 100 Mg Cap) 100 mg PO BID [facility] Stop: 06/23/24 08:59 Last Admin: 06/19/24 08:25 Dose: 100 mg Documented By: Admin: 06/18/24 21:50 Dose: 100 mg Documented By: Admin: 06/18/24 09:52 Dose: 100 mg Documented By: TIMO Enoxaparin Sodium (Enoxaparin Inj 40 Mg/0.4 Ml Syr) 40 [facility]Q [facility] [place] Stop: 07/19/24 08:59 Last Admin: 06/19/24 08:25 Dose: 40 mg Documented By: TIMO Furosemide (Furosemide 80 Mg Tab) [facility] [place] Stop: 07/18/24 08:59 Last Admin: 06/19/24 08:25 Dose: 80 mg Documented By: Admin: 06/18/24 09:52 Dose: 80 mg Documented By: TIMO Furosemide (Furosemide 40 Mg Tab) 40 mg PO DAILY@1400 [facility] Stop: 07/18/24 13:59 Last Admin: 06/19/24 14:44 Dose: 40 mg Documented By: Admin: 06/18/24 15:04 Dose: 40 mg Documented By: TIMO Ceftriaxone Sodium (Rocephin) 2,000 mg in 50 mls @ 100 mls/hr IV Q24H [facility] Stop: 06/23/24 14:29 Last Admin: 06/19/24 14:47 Dose: 100 mls/hr Documented By: Infusion: 06/18/24 17:27 Dose: Infused Documented By: Admin: 06/18/24 16:31 Dose: 100 mls/hr Documented By: TIMO Levothyroxine Sodium (Levothyroxine Sodium 125 Mcg Tablet) 125 mcg PO DAILYBB [facility] Stop: 07/18/24 06:29 Last Admin: 06/19/24 05:47 Dose: 125 mcg Documented By: Admin: 06/18/24 06:53 Dose: 125 mcg Documented By: KARAN Loratadine (Loratadine 10 Mg Tab) 10 mg PO DAILY [facility] Stop: 07/18/24 08:59 Last Admin: 06/19/24 08:24 Dose: 10 mg Documented By: Admin: 06/18/24 09:51 Dose: 10 mg Documented By: TIMO Melatonin (Melatonin 3 Mg Tab) 3 mg PO HS PRN PRN Reason: Sleep Stop: 07/18/24 22:07 Last Admin: 06/18/24 22:30 Dose: 3 mg Documented By: JUANITO Oseltamivir Phosphate (Oseltamivir Phosphate Susp 30 Mg/5 Ml Udp) 30 mg PO BID [facility]; Protocol Stop: 06/23/24 08:59 Last Admin: 06/19/24 08:31 Dose: 30 mg Documented By: Admin: 06/18/24 21:50 Dose: 30 mg Documented By: Admin: 06/18/24 09:51 Dose: 30 mg Documented By: TIMO Potassium Chloride (Potassium Chloride Crtab 20 Meq Tabcr) 20 meq PO DAILY [facility] Stop: 07/18/24 08:59 Last Admin: 06/19/24 09:53 Dose: 20 meq Documented By: Admin: 06/18/24 09:55 Dose: 20 meq Documented By: TIMO Simvastatin (Simvastatin 20 Mg Tab) 20 mg PO QAM [facility] Stop: 07/18/24 08:59 Last Admin: 06/19/24 08:24 Dose: 20 mg Documented By: Admin: 06/18/24 09:52 Dose: 20 mg Documented By: TIMO
[2024-06-19] MEDS: ACETYLCYSTEINE 10% INHAL SOLN 4 ML **DISPENSED BY RESP. INH SCH (20:08)
[2024-06-19] MEDS: ALBUT/IPRATROP 3MG/0.5MG NEB 3 ML VIAL NEB PRN (20:08)
[2024-06-19] MEDS: guaiFENesin 600 MG TABCR PO SCH (21:27)
[2024-06-19] MEDS ORDERED: ACETYLCYSTEINE 10% INHAL SOLN 4 ML **DISPENSED BY RESP. INH SCH (23:00)
[2024-06-20 06:45] LABS: Hematocrit (blood only) 37.2 % (37.0-47.0); Hemoglobin 12.3 g/dl (12.0-16.0); Mean Corpuscular Hemoglobin 30.8 pg (25.0-34.0); Mean Corpuscular Hgb Conc 33.1 g/dL (32.0-36.0); Mean Corpuscular Volume 93.2 fL (80.0-100.0); Mean Platelet Volume 11.1 fL (9.4-12.4); Platelet Count 190 K/uL (130-400); RDW Coefficient of Variation 15.4 % (11.5-14.5); RDW Standard Deviation 53.1 fL (36.4-46.3); Red Blood Count 3.99 M/uL (4.20-5.40); White Blood Count 4.21 K/ul (4.8-10.8)
[2024-06-20 07:01] LABS: BUN Creatinine Ratio 27.6 (10-20); Calcium 8.6 mg/dl (8.6-10.3); Creatinine Clr Calc Pharmacy 56.6 ml/min; Potassium 3.4 mmol/L (3.5-5.1)
[2024-06-20] MEDS: ACETYLCYSTEINE 10% INHAL SOLN 4 ML **DISPENSED BY RESP. INH SCH (07:16)
[2024-06-20] MEDS: POTASSIUM CHLORIDE CRTAB 20 MEQ TABCR PO STA (08:33)
[2024-06-20 10:57] VITALS: RESP 19
--- NOTE | 2024-06-20 14:41 | Discharge Summary ---
Discharge Summary Date of Service June 20, 2024 Principal Dx & Hospital Course #1 = Principal Diagnosis (1) Acute hypoxemic respiratory failure: Acute hypoxemic respiratory failure Influenza A -Multifactorial -Complicated bronchitis/influenza illness, no sepsis for now -only slightly improved today, suspect element of chronicity to patients hypoxia Plan: -tamiflu plus CAP coverage w/ ceftriaxone/doxy for 5 days given hospitalization -f/u echo results -PT/OT given patient weakness -needs oxygen at home, ordered Myocardial Injury -downtrending hx CAD as per records A-fib/atrial flutter, INR therapeutic on Coumadin 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 On medicine, treated with tamiflu and abx with improvement. Required oxygen with 2-step therapies, ordered for home. On 06/20/2024 patient medically stable for discharge home. Medication Changes From Visit -prednisone, abx, albuterol inhaler Admission HPI Per Admitting Provider History obtained from patient, family, and records. Medical history significant for chronic diastolic heart failure (EF 65%, TTE 2021), CAD, A-fib on Coumadin, moderate to severe MR, status post bioprosthetic AVR, hypertension, hyperlipidemia, bronchial asthma, hypothyroidism. Few days history of junky cough symptoms associated with SOB. No chest pain or fluid retention. No overt wheezing at home as per patient. Sick contacts at a recent wedding over the weekend. O2 sats 80s upon arrival at the ER. Tamiflu and Lasix administered at the ER. Medical History as above Surgical History : Knee surgery, bioprosthetic AVR, salpingo-oophorectomy Family History : Heart disease, thyroid disease Personal/Social history : Non-smoker, no EtOH intake, retired pharmacy employee Discharge Exam Gen: A&O 3 NAD, some cachexia noted (despite BMI) HEENT: NCAT, EOMI, not icteric. External ears normal. No rhinorrhea. Moist mucous membranes. Neck: Supple, full range of motion, no observable masses, No meningeal sign. Lungs: trace rhonchi noted bilaterally, improved from prior CV: RRR, no edema. Abdomen: Soft, nondistended, No rebound tenderness. MSK: No joint swelling, no redness. Skin: No rashes, petechiae, lesions. Normal color per patient. Neuro: Normal Gait, Grossly intact. Psych: Appropriate for situation. Updated Medication List Medication Instructions Recorded Confirmed Type amlodipine 5 mg tablet 5 mg PO QAM 03/22/22 06/17/24 History atenolol 25 mg tablet 25 mg PO QAM 03/22/22 06/17/24 History potassium chloride 20 mEq 20 meq PO DAILY 03/22/22 06/17/24 History tablet,extended release simvastatin 20 mg tablet 20 mg PO QAM 03/22/22 06/17/24 History acetaminophen 650 mg 650 mg PO Q6H PRN Pain 06/17/24 06/17/24 History tablet,extended release amoxicillin 500 mg capsule 2,000 mg PO .UD PRN Prophylaxis 06/17/24 06/17/24 History aspirin 81 mg tablet,delayed 81 mg PO DAILY 06/17/24 06/17/24 History release ciclopirox 8 % topical solution 1 applic topical DAILY 06/17/24 06/17/24 History furosemide 40 mg tablet 40 mg PO .QAFTERNOON 06/17/24 06/17/24 History furosemide 40 mg tablet 80 mg PO QAM 06/17/24 06/17/24 History levothyroxine 125 mcg tablet 125 mcg PO DAILYBB 06/17/24 06/17/24 History loratadine 10 mg tablet 10 mg PO DAILY 06/17/24 06/17/24 History warfarin 4 mg tablet 4 mg PO 3XWK 06/17/24 06/18/24 History warfarin 5 mg tablet 5 mg PO 4XWK 06/18/24 06/18/24 History Incentive Spirometer #1 ea 06/20/24 Rx albuterol sulfate 90 mcg/actuation 1 inh inhalation Q6H PRN shortness 06/20/24 Rx aerosol inhaler of breath or wheezing #8.5 grams amoxicillin 500 mg-potassium 1 tab PO BID #30 tabs 06/20/24 Rx clavulanate 125 mg tablet (Augmentin) benzonatate 100 mg capsule 100 mg PO TID PRN cough #30 caps 06/20/24 Rx doxycycline hyclate 100 mg capsule 100 mg PO BID #30 caps 06/20/24 Rx guaifenesin 600 mg tablet, 600 mg PO Q12 #30 tabs 06/20/24 Rx extended release 12 hr (Mucinex) oseltamivir 6 mg/mL oral 30 mg (5 mL) PO BID #60 mL 06/20/24 Rx suspension (Tamiflu) prednisone 20 mg tablet 40 mg (2 x 20 mg) PO DAILY 5 days 06/20/24 Rx #10 tabs Hospital Stay Data Consultations 06/17/24 22:24 ED Decision to Admit Stat Diagnostic Imagining Performed 06/18/24 18:11 CT chest with contrast [CT chest diagnostic w con] Urgent Pending Results Patient Have Any Pending Studies at Discharge: No Discharge Instructions Given to Patient (Per Discharging Provider) 1. Please take medications as prescribed. 2. Follow up with cardiology and PCP. 3. Goal oxygen saturation at home is 88% and above. Total Time Total Time Spent Total Time Spent (In Minutes): I spent a total of 35 minutes in direct patient care, including [id number] [id number] e with the patient and/or family, reviewing medical records, ordering and reviewing diagnostic tests, and coordinating care with other healthcare providers. This time includes: history taking, physical examination, medical decision making, counseling, ECG interpretation, imaging interpretation, lab interpretation, orders, and education, excluding time spent in the performance of separately billed services.
[2024-06-20 16:02] VITALS: PULSE 91; TEMP 97.9; O2SAT 91
[2024-06-20 18:27] VITALS: BP 113/70
--- NOTE | 2024-06-21 14:00 | Electrocardiogram Report ---
Test Reason : Blood Pressure : */* mmHG Vent. Rate : 85 BPM Atrial Rate : 366 BPM P-R Int : * ms QRS Dur : 88 ms QT Int : 424 ms P-R-T Axes : * 74 36 degrees QTcB Int : 504 ms Atrial fibrillation Prolonged QT Abnormal ECG When compared with ECG of 17-Jun-2024 21:13, No significant change was found Confirmed by Ken Nava ([id number]) on 06/21/2024 2:00:24 PM Referred By: REFERRED SELF Confirmed By: Ken Nava
== END 2024-06-20 18:27 | disposition home or self-care (01) | DRG 193 ==
LOC: ED 20:55 → SUATTDRO 23:04 → 2E 23:04

== ENCOUNTER 2024-09-27 10:02 | Inpatient (IN) ==
[2024-09-27 10:35] LABS: Hematocrit (blood only) 34.9 % (37.0-47.0); Hemoglobin 11.2 g/dl (12.0-16.0); Immature Granulocytes # (auto) 0.01 K/uL (0.01-0.20); Immature Granulocytes % (auto) 0.1 %; Mean Corpuscular Hemoglobin 29.3 pg (25.0-34.0); Mean Corpuscular Volume 91.4 fL (80.0-100.0); Platelet Count 312 K/uL (130-400); RDW Standard Deviation 46.7 fL (36.4-46.3); Red Blood Count 3.82 M/uL (4.20-5.40); White Blood Count 6.80 K/ul (4.8-10.8)
--- NOTE | 2024-09-27 10:44 | XRay Report ---
HISTORY: Shortness of breath. TECHNIQUE: Portable AP radiograph of the chest. COMPARISON: Chest CT dated 06/18/2024. Chest radiograph dated 06/17/2024. FINDINGS: Left lung base/retrocardiac opacity. Mild vascular congestion. Blunting of the left costophrenic angle. No pneumothorax. Cardiomegaly. Postsurgical changes of median sternotomy and cardiac valve replacement. Degenerative changes of the shoulders and spine. IMPRESSION: * Cardiomegaly with vascular congestion suggesting CHF. * Left lung base/retrocardiac opacity is nonspecific and may represent atelectasis/scarring or pneumonia. * Blunting of the left costophrenic angle may represent pleural thickening or trace effusion. Electronically signed by Esvin Luther 09-27-2024 10:43 AM
[2024-09-27 10:51] LABS: Alanine Aminotransferase 15.0 U/L (7-52); Albumin Globulin Ratio 1.3 (0.9-2); Alkaline Phosphatase 77.0 U/L (34-104); Anion Gap 8.0 (3-11); Bilirubin,Total 0.5 mg/dl (0.2-1.0); Blood Urea Nitrogen 14.0 mg/dl (6-23); Calcium 9.2 mg/dl (8.6-10.3); Carbon Dioxide 26.0 mmol/L (21-32); Chloride 102.0 mmol/L (98-107); Creatinine Clr Calc Pharmacy 56.2 ml/min; Globulin 3.2 gm/dl (2.5-4.0); Glucose 89.0 mg/dl (70-99(Fasting)); Lipase 68.0 U/L (11-82); Magnesium 2.3 mg/dl (1.7-2.4); Potassium 4.0 mmol/L (3.5-5.1); Sodium 136.0 mmol/L (136-145); Total Protein 7.4 gm/dl (6.0-8.3)
[2024-09-27 10:58] LABS: INR 2.2 (0.9-1.1); Prothrombin Time 22.0 Seconds (9.0-12.0)
[2024-09-27 11:03] LABS: Base Excess VBG 1.3 mEq/L; HCO3 VBG 27 mmol/L; Oxygen Saturation VBG < 60.0 %; PCO2 VBG 47 mmHg (38-50); PO2 VBG 28 mmHg; pH VBG 7.37 (7.36-7.41)
--- NOTE | 2024-09-27 11:16 | Emergency Department Note ---
Impression & Plan Acute hypoxemic respiratory failure, Dyspnea, Upper respiratory infection, viral ED Provider Note ED Provider Note NAME: MARIA LUISA BAKER AGE:83 SEX: Female : 1940 ARRIVES VIA: EMS INFORMANT: Patient ED PROVIDER(s): Beena Maki DO CHIEF COMPLAINT: Increased shortness of breath HPI: This is an 83-year-old female who presents emergency department via EMS due to concern for increased shortness of breath. Patient states she was diagnosed with bronchitis at the beginning of the week and was started on antibiotic. She states at one time she was told she had asthma, no history of COPD. She does not wear oxygen at home or use any MDI/nebulizer treatments. She states she has been taking her medications but did not notice any significant improvement. This morning she felt her breathing was worse particularly with any exertion. Upon EMS arrival she was noted to be hypoxic and was started on oxygen via nasal cannula with some improvement. Patient states she also has a history of CHF. No recent increased lower extremity edema, she does adhere to a fluid restriction of 50 ounces a day, and takes her diuretic. Antibiotic she was recently placed on currently was cephalexin. PAST MEDICAL HISTORY:See Below PAST SURGICAL HISTORY:See Below FAMILY HISTORY:See Below SOCIAL HISTORY:See Below HOME MEDICATIONS:See Below ALLERGIES:See Below VITALS:See Below PHYSICAL EXAMINATION: GENERAL: alert, well appearing, well nourished, no distress, non-toxic EYE EXAM: normal conjunctiva, PERRL and EOM's grossly intact OROPHARYNX: no exudate, no erythema, lips, buccal mucosa, and tongue normal and mucous membranes are moist NECK: supple, no nuchal rigidity, no adenopathy, non-tender LUNGS: Decreased to auscultation. Normal chest wall mechanics, no w/r, bibasilar rales HEART: no murmurs, S1 normal and S2 normal ABDOMEN: abdomen soft, non-tender, normo-active bowel sounds, no masses, no rebound or guarding. BACK: Back is symmetrical on inspection and there is no deformity, no midline tenderness, no CVA tenderness. SKIN: no rashes, petechiae, orbruising UPPER EXTREMITIES: upper extremities are grossly normal. FROM, nml pulses b/l. LOWER EXTREMITIES: No pitting edema. FROM, nml pulses b/l. NEURO EXAM: Normal sensorium, cranial nerves II-XII grossly intact, normal speech, no facial droop,nogross weakness of arms, no gross weakness of legs. Gross sensation intact. No ataxia. Vital Signs: reviewed and remarkable Differential Diagnosis: pneumonia, bronchitis, COPD/Asthma exacerbation, pneumothorax, pulmonary embolism, congestive heart failure, acute coronary syndrome, as well as others were considered. MEDICAL DECISION MAKING: This is an 83-year-old female presents emerged part due to concern for increased shortness of breath. Patient noted to be hypoxic by EMS on arrival and was placed on oxygen via nasal cannula with improvement. Upon arrival here her oxygen was removed and she was again noted to be hypoxic at 83% and was placed back on the nasal cannula 3 to 4 L/min with sats improving to the mid/upper 90's. Labs drawn and sent, IV established, EKG and chest ray performed at bedside interpreted by me and patient monitored on telemetry. Nasal swab obtained and sent additionally. Patient does have prior history of asthma as well as CHF. Clinical exam not consistent with acutely worsening CHF. Chest x- ray did have increased interstitial markings, no true focal consolidation. Nasal swab ultimately positive for viral URI. Patient was given a DuoNeb here additionally. Mild anemia noted although stable compared to prior. Her BNP was elevated. Patient states she has been compliant with her fluid restrictions and taking her diuretic daily. INR noted to be therapeutic, low suspicion for occult PE. Given hypoxia and need for further respiratory support, case discussed with hospitalist team for additional evaluation and management. Consultation(s): 1348: Discussed with Dr. Olivarez, [place] hospitalist team, for additional evaluation and mgmt. ER Treatment Provided: See below Diagnostics Interpreted By Me: -ECG: Normal sinus rhythm at 88, normal axis, normal intervals, PVC noted, nonspecific ST/T wave changes -Cardiac Monitoring: An order was placed for continuous cardiac monitoring. The monitor shows a rate of 86 with normal sinus rhythm. -Laboratory studies: As stated above and show below. -Imaging studies: cxr: CM noted, no wide mediastinum, increased interstitial markings bilaterally but worse on the left, no overt pleural effusion Triage Nursing Note Reviewed Prior/Outside Records Reviewed -echo from May 2024 reviewed. Given the complicated Past Med/Surg History Problem List (Updated 09/27/24 @ 19:00 by Belia Barcenas MD) Upper respiratory infection, viral (Acute) Rhinovirus infection Dyspnea (Acute) Acute hypoxemic respiratory failure (Acute) Hypokalemia (Acute) Hypoxia (Acute) CHF (congestive heart failure) (Acute) SOB (shortness of breath) (Acute) COVID-19 (Acute) HTN (hypertension) Right knee DJD Total knee replacement status Medical History (Updated 09/28/24 @ 09:54 by Beena Maki DO) Atrial fibrillation COVID-19 CHF (congestive heart failure) Surgical History (Updated 09/27/24 @ 19:00 by Belia Barcenas MD) Aortic valve replaced Family History (Updated 09/27/24 @ 18:56 by Belia Barcenas MD) Other Family history non-contributory Social History Smoking Status: Never smoker Hx Alcohol Use: No Hx Substance Use: No Preferred Language: Andorran Communication Ability: Effective Water Quality Assistant Required: No Beliefs That Will Affect Care: Buddhism Current Living Situation: Alone Current Living Situation Comment: APARTMENT Feels Safe at Home: Yes Safety Concerns: Feels Safe At This Time Assistive Devices: Walker Allergies Allergies Allergy/AdvReac Type Severity Reaction Status Date / Time fexofenadine Allergy Unknown UNKNOWN Verified 06/17/24 23:30 celecoxib [From Celebrex] Allergy Unknown Verified 06/17/24 23:30 tramadol AdvReac Intermediate DIZZINESS,N Verified 06/17/24 23:30 AUSEA aspirin AdvReac Unknown NOT TO Verified 06/17/24 23:30 TAKE BECAUSE ON WARFARIN Home Meds Home Medications Medication Instructions Recorded Confirmed amlodipine 5 mg tablet 5 mg PO QAM 03/22/22 09/27/24 atenolol 25 mg tablet 25 mg PO QAM 03/22/22 09/27/24 potassium chloride 20 mEq 20 meq PO DAILY 03/22/22 09/27/24 tablet,extended release simvastatin 20 mg tablet 20 mg PO QAM 03/22/22 09/27/24 acetaminophen 650 mg 650 mg PO Q6H PRN Pain 06/17/24 09/27/24 tablet,extended release aspirin 81 mg tablet,delayed 81 mg PO DAILY 06/17/24 09/27/24 release ciclopirox 8 % topical solution 1 applic topical DAILY 06/17/24 09/27/24 furosemide 40 mg tablet 40 mg PO .QAFTERNOON 06/17/24 09/27/24 furosemide 40 mg tablet 80 mg PO QAM 06/17/24 09/27/24 levothyroxine 125 mcg tablet 125 mcg PO DAILYBB 06/17/24 09/27/24 loratadine 10 mg tablet 10 mg PO DAILY 06/17/24 09/27/24 warfarin 4 mg tablet 0 mg PO 3XWK 06/17/24 09/27/24 cephalexin 250 mg capsule 250 mg PO TID 09/27/24 09/27/24 warfarin 2.5 mg tablet 0 mg PO [id number] 09/27/24 09/27/24 Previous Rx's Medication Instructions Recorded Incentive Spirometer #1 ea 06/20/24 albuterol sulfate 90 mcg/actuation 1 inh inhalation Q6H PRN shortness 06/20/24 aerosol inhaler of breath or wheezing #8.5 grams benzonatate 100 mg capsule 100 mg PO TID PRN cough #30 caps 06/20/24 guaifenesin 600 mg tablet, 600 mg PO Q12 #30 tabs 06/20/24 extended release 12 hr (Mucinex) Results & Data (ED) Vital Signs Vital Signs - 24 hr 09/27/24 09:50 09/27/24 10:15 09/27/24 10:15 Temperature 36.8 C Temperature Source Oral Pulse Rate 70 Pulse Rate [Apical] Pulse Rhythm Regular Pulse Rhythm [Apical] Pulse Strength Normal Pulse Strength [Apical] Respiratory Rate 21 Respiratory Effort / Characteristics Non-Labored Spontaneous Non-Labored Respiratory Depth Normal Normal Respiratory Pattern Regular Regular Blood Pressure 133/79 Blood Pressure [Right Arm] Blood Pressure Mean 97 Blood Pressure Mean [Right Arm] Blood Pressure Position Sitting Blood Pressure Position [Right Arm] Pulse Oximetry 100 100 Oxygen Delivery Method Room Air Nasal Cannula Nasal Cannula Oxygen Flow Rate 4 4 Sepsis Recent Fever Within 48 Hours No Sepsis New/Unexplained Change in Mental Status No Sepsis Action Taken by Nursing No Action Required 09/27/24 10:15 09/27/24 11:23 09/27/24 12:15 Temperature 36.8 C Temperature Source Oral Pulse Rate 74 Pulse Rate [Apical] 70 82 Pulse Rhythm Pulse Rhythm [Apical] Regular Pulse Strength Pulse Strength [Apical] Normal Respiratory Rate 21 20 Respiratory Effort / Characteristics Non-Labored Spontaneous Respiratory Depth Normal Respiratory Pattern Regular Blood Pressure Blood Pressure [Right Arm] 133/79 124/82 Blood Pressure Mean Blood Pressure Mean [Right Arm] 97 96 Blood Pressure Position Blood Pressure Position [Right Arm] Sitting Pulse Oximetry 100 99 Oxygen Delivery Method Nasal Cannula Nasal Cannula Oxygen Flow Rate 4 4 Sepsis Recent Fever Within 48 Hours Sepsis New/Unexplained Change in Mental Status Sepsis Action Taken by Nursing 09/27/24 14:00 Temperature Temperature Source Pulse Rate Pulse Rate [Apical] 93 H Pulse Rhythm Pulse Rhythm [Apical] Regular Pulse Strength Pulse Strength [Apical] Normal Respiratory Rate 19 Respiratory Effort / Characteristics Non-Labored Spontaneous Respiratory Depth Normal Respiratory Pattern Regular Blood Pressure Blood Pressure [Right Arm] 123/85 Blood Pressure Mean Blood Pressure Mean [Right Arm] 97 Blood Pressure Position Blood Pressure Position [Right Arm] Sitting Pulse Oximetry 96 Oxygen Delivery Method Nasal Cannula Oxygen Flow Rate 4 Sepsis Recent Fever Within 48 Hours Sepsis New/Unexplained Change in Mental Status Sepsis Action Taken by Nursing Laboratory Data 09/28/24 05:49 09/28/24 05:49 Lab Results 09/27/24 09/27/24 09/27/24 Range/Units 10:16 10:47 10:55 WBC 6.80 (4.8-10.8) K/ul RBC 3.82 L (4.20-5.40) M/uL Hgb 11.2 L (12.0-16.0) g/dl Hct 34.9 L (37.0-47.0) % MCV 91.4 (80.0-100.0) fL MCH 29.3 (25.0-34.0) pg MCHC 32.1 (32.0-36.0) g/dL RDW Std Deviation 46.7 H (36.4-46.3) fL RDW Coeff of Migel 14.0 (11.5-14.5) % Plt Count 312 (130-400) K/uL MPV 9.9 (9.4-12.4) fL Immature Gran % (Auto) 0.1 % Neut % (Auto) 71.4 % Lymph % (Auto) 13.1 % Carver % (Auto) 14.1 % Eos % (Auto) 0.9 % Baso % (Auto) 0.4 % Neut # (Auto) 4.85 (1.40-6.50) K/uL Lymph # (Auto) 0.89 L (1.20-3.40) K/uL Carver # (Auto) 0.96 H (0.11-0.59) K/uL Eos # (Auto) 0.06 (0.00-0.50) K/uL Baso # (Auto) 0.03 (0.00-0.20) K/uL Immature Gran # (Auto) 0.01 (0.01-0.20) K/uL PT 22.0 H (9.0-12.0) Seconds INR 2.2 H (0.9-1.1) VBG pH 7.37 (7.36-7.41) VBG pCO2 47 (38-50) mmHg VBG pO2 28 mmHg VBG HCO3 27 mmol/L VBG O2 Saturation < 60.0 % VBG Base Excess 1.3 mEq/L Sodium 136 (136-145) mmol/L Potassium 4.0 (3.5-5.1) mmol/L Chloride 102 (98-107) mmol/L Carbon Dioxide 26 (21-32) mmol/L Anion Gap 8 (3-11) BUN 14 (6-23) mg/dl Creatinine 0.66 (0.6-1.2) mg/dl Est Cr Clr Drug Dosing 56.2 ml/min eGFR 85.91 BUN/Creatinine Ratio 21.2 H (10-20) Glucose 89 (70-99(Fasting)) mg/dl Calcium 9.2 (8.6-10.3) mg/dl Magnesium 2.3 (1.7-2.4) mg/dl Total Bilirubin 0.5 (0.2-1.0) mg/dl AST 35 (13-39) U/L ALT 15 (7-52) U/L Alkaline Phosphatase 77 (34-104) U/L Troponin I High Sens 12.3 (0-14) pg/ml B-Natriuretic Peptide 234 H (0-100) pg/ml Total Protein 7.4 (6.0-8.3) gm/dl Albumin 4.2 (3.4-5.0) gm/dl Globulin 3.2 (2.5-4.0) gm/dl Albumin/Globulin Ratio 1.3 (0.9-2) Lipase 68 (11-82) U/L Adenovirus (PCR) Not Detected (NotDetected) B. pertussis DNA (PCR) Not Detected (NotDetected) B.parapertussis DNA PCR Not Detected (NotDetected) C. pneumoniae DNA (PCR) Not Detected (NotDetected) Coronavirus OC43 (PCR) Not Detected (NotDetected) Coronavirus HKU1 (PCR) Not Detected (NotDetected) Coronavirus 229E (PCR) Not Detected (NotDetected) SARS-CoV-2 (PCR) Not Detected (NotDetected) Coronavirus NL63 (PCR) Not Detected (NotDetected) Human Metapneumovir PCR Not Detected (NotDetected) Influenza Type A (PCR) Not Detected (NotDetected) Influenza Type B (PCR) Not Detected (NotDetected) M. pneumoniae (PCR) Not Detected (NotDetected) Parainfluenza 1 (PCR) Not Detected (NotDetected) Parainfluenza 2 (PCR) Not Detected (NotDetected) Parainfluenza 3 (PCR) Not Detected (NotDetected) Parainfluenza 4 (PCR) Not Detected (NotDetected) RSV (PCR) Not Detected (NotDetected) Entero/Rhino (PCR) DETECTED A (NotDetected) Administered Medications Acetaminophen (Acetaminophen 325 Mg Tab) 650 mg PO Q4H PRN PRN Reason: Pain or Fever Stop: 10/27/24 17:45 Last Admin: 09/27/24 20:46 Dose: 650 mg Documented By: MED Albuterol (Albut/Ipratrop 3mg/0.5mg Neb 3 Ml Vial) 3 ml NEB Q6R [facility]; Protocol Stop: 10/27/24 18:59 Last Admin: 09/28/24 07:44 Dose: 3 ml Documented By: Admin: 09/28/24 01:51 Dose: Not Given Documented By: Admin: 09/27/24 19:47 Dose: 3 ml Documented By: TNOIB Aspirin (Aspirin 81 Mg Ectab) 81 mg PO DAILY [facility] Stop: 10/28/24 08:59 Last Admin: 09/28/24 08:10 Dose: 81 mg Documented By: TLM Atenolol (Atenolol 25 Mg Tablet) 25 mg PO HS [facility] Stop: 10/27/24 20:59 Last Admin: 09/27/24 20:46 Dose: 25 mg Documented By: ABIGAIL Furosemide (Furosemide 40 Mg Tab) 80 mg PO QAM TERRY Stop: 10/28/24 08:59 Last Admin: 09/28/24 08:10 Dose: 80 mg Documented By: FRANKLIN Guaifenesin (Guaifenesin 600 Mg Tabcr) 600 mg PO Q12 TERRY Stop: 10/27/24 20:59 Last Admin: 09/28/24 08:10 Dose: 600 mg Documented By: Admin: 09/27/24 20:46 Dose: 600 mg Documented By: ABIGAIL Levothyroxine Sodium (Levothyroxine Sodium 125 Mcg Tablet) 125 mcg PO DAILYBB TERRY Stop: 10/28/24 06:29 Last Admin: 09/28/24 06:03 Dose: 125 mcg Documented By: ABIGAIL Loratadine (Loratadine 10 Mg Tab) 10 mg PO DAILY TERRY Stop: 10/28/24 08:59 Last Admin: 09/28/24 08:10 Dose: 10 mg Documented By: FRANKLIN Potassium Chloride (Potassium Chloride Crtab 20 Meq Tabcr) 20 meq PO DAILY TERRY Stop: 10/28/24 08:59 Last Admin: 09/28/24 08:10 Dose: 20 meq Documented By: FRANKLIN Simvastatin (Simvastatin 20 Mg Tab) 20 mg PO HS TERRY Stop: 10/27/24 20:59 Last Admin: 09/27/24 20:46 Dose: 20 mg Documented By: ABIGAIL Discontinued Medications Albuterol (Albut/Ipratrop 3mg/0.5mg Neb 3 Ml Vial) 3 ml NEB NOW STA; Protocol Stop: 09/27/24 13:00 Last Admin: 09/27/24 13:09 Dose: 3 ml Documented By: JASMYN Dexamethasone (Dexamethasone Sod Inj 4 Mg/Ml Vial) 6 mg IV NOW STA Stop: 09/27/24 14:30 Last Admin: 09/27/24 14:37 Dose: 6 mg Documented By: JASMYN Furosemide (Furosemide 40 Mg/4 Ml Vial) 40 mg IV ONE ONE Stop: 09/27/24 14:30 Last Admin: 09/27/24 14:35 Dose: 40 mg Documented By: JASMYN Imaging Data Radiologist's Impression: Chest X-Ray 09/27/24 10:21 HISTORY: Shortness of breath. TECHNIQUE: Portable AP radiograph of the chest. COMPARISON: Chest CT dated 06/18/2024. Chest radiograph dated 06/17/2024. FINDINGS: Left lung base/retrocardiac opacity. Mild vascular congestion. Blunting of the left costophrenic angle. No pneumothorax. Cardiomegaly. Postsurgical changes of median sternotomy and cardiac valve replacement. Degenerative changes of the shoulders and spine. IMPRESSION: * Cardiomegaly with vascular congestion suggesting CHF. * Left lung base/retrocardiac opacity is nonspecific and may represent atelectasis/scarring or pneumonia. * Blunting of the left costophrenic angle may represent pleural thickening or trace effusion. Electronically signed by Esvin Luther 09-27-2024 10:43 AM Discharge Plan Visit Data Chief Complaint: Shortness of Breath/Dyspnea Stated Complaint: SOB ED Provider: Beena Maki Discharge Problem: Acute hypoxemic respiratory failure, Dyspnea, Upper respiratory infection, viral Patient Disposition: Admitted As Inpatient Condition: Fair Discharge Instructions Interventions: ED Discharge Assessment Last Done: 09/27/24 17:09
[2024-09-27 11:49] LABS: Chlamydia pneumoniae PCR Not Detected (NotDetected); Coronavirus 229E PCR Not Detected (NotDetected); Coronavirus CoV-2 (COVID19)PCR Not Detected (NotDetected); Coronavirus HKU1 PCR Not Detected (NotDetected); Coronavirus NL63 PCR Not Detected (NotDetected); Coronavirus OC43PCR Not Detected (NotDetected); Human Metapneumovirus PCR Not Detected (NotDetected); Parainfluenza Virus 1 PCR Not Detected (NotDetected); Parainfluenza Virus 2 PCR Not Detected (NotDetected); Parainfluenza Virus 3 PCR Not Detected (NotDetected); Parainfluenza Virus 4 PCR Not Detected (NotDetected); Respiratory Syncytial VirusPCR Not Detected (NotDetected); Rhinovirus/Enterovirus PCR DETECTED (NotDetected)
[2024-09-27] MEDS: ALBUT/IPRATROP 3MG/0.5MG NEB 3 ML VIAL NEB STA (13:09)
--- NOTE | 2024-09-27 14:04 | History & Physical Report ---
"Date of Service September 27, 2024 Assessment & Plan (1) Rhinovirus infection: (2) CHF (congestive heart failure): (3) Atrial fibrillation: (4) HTN (hypertension): Francisco Garcia is an 83F with a PMHx of afib, CHF, asthma, HTN, bioprosthetic AVR, HLD, hypothyroid who presents to the hospital after being hypoxic at home in the 80s. Initial evaluation shows new oxygen requirement and CXR showing vascular congestion suggesting CHF, left lung base opacity may represent atelectasis/scarring or pneumonia and blunting of costophrenic angle. Admitted for supplemental oxygen and further workup. #Rhino/enterovirus/acute respiratory failure with hypoxemia/acute asthma exacerbation # possible pneumonia Likely the cause of the hypoxia. WBC 6 One time dose of dexamethasone - monitor for need daily use as can interact with Coumadin supportive care: IS, FV, mucinex, scheduled nebs, prn tessalon Wean O2 as able, goal < 90%, baseline is room air (consider 2-step prior to d/c had to go home with O2 after last admission with flu A) PT/OT Check procalcitonin and if elevated, start ceftriaxone and doxycycline for community-acquired pneumonia AM CBC and BMP # Chronic diastolic CHF BNP is 234 (higher than prior) and CXR with vascular congestion. Echo from 05/2024 with moderate LVH, preserved EF 60-65%, LA severely dilated, bioprosthetic AV, moderate MR, elevated RVSP 50 mmHg 40mg IV lasix now, then continue home regimen for AM not overly volume overloaded on exam but does appear to have pulmonary edema on CXR #Afib | Chronic Warfarin Use INR 2.2 on admission, goal 2-3 Continue home Warfarin dosing. Continue atenolol AM INR - monitor with steroid use #HTN - continue amlodipine #Hypothyroid - continue synthroid Dispo: admit to med/tele - cardiac monitoring with IV lasix DVT proh: Home Warfarin History of Present Illness Chief Complaint: SOB Primary Care Provider: BEE Jurado Radha is an 83F with a PMHx of afib (on coumadin), CHF, asthma, HTN, bioprosthetic AVR, HLD, hypothyroid who presents to the hospital after being hypoxic at home in the 80s. Feeling ill this week, went to PCP office on [address] and diagnosed with bronchitis gave her keflex. Has been taking this at home, and not getting better. Noticing that her oxygen dropping to 87-88% with ambulation. Getting SOB with activity. Was coughing earlier in the week but that has improved. Reports tightness in her chest. Report no change in bowel habits. No changes in appetite. Hx of asthma - no longer taking anything daily, because insurance stopped paying for it and felt like she no longer needed it. Denies fever or chills. NO recent falls. No supplementation oxygen at baseline. She was found to be positive for rhino/enterovirus in the ED. Took her medication this morning. Uses rollator at baseline. Lives alone at [facility] in [place]. ED course: DuoNeb Allergies Allergy/AdvReac Type Severity Reaction Status Date / Time fexofenadine Allergy Unknown UNKNOWN Verified 06/17/24 23:30 celecoxib [From Celebrex] Allergy Unknown Verified 06/17/24 23:30 tramadol AdvReac Intermediate DIZZINESS,N Verified 06/17/24 23:30 AUSEA aspirin AdvReac Unknown NOT TO Verified 06/17/24 23:30 TAKE BECAUSE ON WARFARIN Home Medications Medication Instructions Recorded Confirmed Type amlodipine 5 mg tablet 5 mg PO QAM 03/22/22 09/27/24 History atenolol 25 mg tablet 25 mg PO QAM 03/22/22 09/27/24 History potassium chloride 20 mEq 20 meq PO DAILY 03/22/22 09/27/24 History tablet,extended release simvastatin 20 mg tablet 20 mg PO QAM 03/22/22 09/27/24 History acetaminophen 650 mg 650 mg PO Q6H PRN Pain 06/17/24 09/27/24 History tablet,extended release aspirin 81 mg tablet,delayed 81 mg PO DAILY 06/17/24 09/27/24 History release ciclopirox 8 % topical solution 1 applic topical DAILY 06/17/24 09/27/24 History furosemide 40 mg tablet 40 mg PO .QAFTERNOON 06/17/24 09/27/24 History furosemide 40 mg tablet 80 mg PO QAM 06/17/24 09/27/24 History levothyroxine 125 mcg tablet 125 mcg PO DAILYBB 06/17/24 09/27/24 History loratadine 10 mg tablet 10 mg PO DAILY 06/17/24 09/27/24 History warfarin 4 mg tablet 0 mg PO 3XWK 06/17/24 09/27/24 History Incentive Spirometer #1 ea 06/20/24 Rx albuterol sulfate 90 mcg/actuation 1 inh inhalation Q6H PRN shortness 06/20/24 09/27/24 Rx aerosol inhaler of breath or wheezing #8.5 grams benzonatate 100 mg capsule 100 mg PO TID PRN cough #30 caps 06/20/24 09/27/24 Rx guaifenesin 600 mg tablet, 600 mg PO Q12 #30 tabs 06/20/24 09/27/24 Rx extended release 12 hr (Mucinex) cephalexin 250 mg capsule 250 mg PO TID 09/27/24 09/27/24 History warfarin 2.5 mg tablet 0 mg PO 4XWK 09/27/24 09/27/24 History Past Med/Surg History Problem List (Updated 09/27/24 @ 19:00 by Belia Barcenas MD) Rhinovirus infection Hypoxia (Acute) Dyspnea (Acute) Acute hypoxemic respiratory failure Hypokalemia (Acute) Hypoxia (Acute) CHF (congestive heart failure) (Acute) SOB (shortness of breath) (Acute) COVID-19 (Acute) HTN (hypertension) Right knee DJD Total knee replacement status Medical History (Updated 09/27/24 @ 14:40 by Aviva Flores PA-C) Atrial fibrillation COVID-19 CHF (congestive heart failure) Surgical History (Updated 09/27/24 @ 19:00 by Belia Barcenas MD) Aortic valve replaced Family History (Updated 09/27/24 @ 18:56 by Belia Barcenas MD) Other Family history non-contributory Social History Smoking Status: Never smoker Hx Alcohol Use: No Hx Substance Use: No Preferred Language: Mohawk Communication Ability: Effective [place] [employer] Guide Required: No Beliefs That Will Affect Care: Spiritism Current Living Situation: Alone Current Living Situation Comment: APARTMENT Feels Safe at Home: Yes Safety Concerns: Feels Safe At This Time Assistive Devices: Walker Review of Systems Review of Systems: All systems reviewed & are unremarkable except as noted in Subjective Physical Exam Physical Exam: General: NAD, VS as above Resp: normal respiratory effort, no wheezing, lung sounds diminished, not moving a ton of air CV: afib, no murmur, Abd: normal bowel sounds, non tender, no hepatosplenomegaly Extremities: Moves all extremities, no edema Neuro: A&O x3, Skin: intact, no lesions noted Results & Data Results & Data Vital Signs (Past 12 Hours) Vital Signs Temp Pulse Pulse Resp BP BP Pulse Ox 09/27/24 12:15 82 20 124/82 99 09/27/24 11:23 74 09/27/24 10:15 98.3 F 70 21 133/79 100 09/27/24 10:15 100 09/27/24 10:15 09/27/24 09:50 98.3 F 70 21 133/79 100 O2 Del Method O2 Flow Rate 09/27/24 12:15 Nasal Cannula 4 09/27/24 11:23 09/27/24 10:15 Nasal Cannula 4 09/27/24 10:15 Nasal Cannula 4 09/27/24 10:15 Nasal Cannula 4 09/27/24 09:50 Room Air Laboratory Results cbc, chemistry and INR reviewed Diagnostic Findings CXR reviewed ECG Additional Comments: ECG on 09/27/2024 at 10:13 AM with likely A-fib, rate 88, nonspecific T wave abnormality in inferior leads Supervising Physician Co-Signing Physician Notes PA Supervision Note: I personally saw and examined the patient. I verified all hardy points and agree with SALUD Flores with the following exceptions and/or additions: S-patient presents with increasing shortness of breath, cough that is slightly productive. Denies fevers or chest pain. She was hypoxic at home O- Vitals reviewed Gen: AAOx3, NAD HEENT: Anicteric sclerae, EOMI CV: Irregularly irregular, normal rate no mgr nl S1S2 Pulm: CTAB no wcr except diminished at the bases Abd: +BS soft NT ND no masses or hernias Ext: No edema Skin: No rashes, warm/dry Neuro: Full strength throughout A/G-[id number]-old female with a history of asthma, bioprosthetic aortic valve, HTN, chronic HFpEF, permanent atrial fibrillation rate controlled on Coumadin here with acute asthma exacerbation, acute respiratory failure with hypoxemia, rhino/enterovirus, and pneumonia - IV steroids x 1 dose, will need to be ordered ongoing if need continues - IV Lasix x 1 and then home p.o. Lasix - Check procalcitonin and if elevated add antibiotics for community-acquired pneumonia Supportive care - Supplemental O2 and two-step walk test prior to discharge PG Care Time/CCT Total # of Minutes Spent Total Time Spent with Patient: Total time spent is greater than 50% in coordination of care (as documented) at patient's floor/unit and/or counseling patient: Coding Level of Care Code 27996 INT INP/OBS CARE 3/75MIN Diagnoses Rhinovirus infection B34.8 CHF (congestive heart failure) I50.9 Atrial fibrillation I48.91 HTN (hypertension) I10"
[2024-09-27] MEDS: FUROSEMIDE 40 MG/4 ML VIAL IV ONE (14:35)
[2024-09-27] MEDS: DEXAMETHASONE SOD INJ 4 MG/ML VIAL IV STA (14:37)
[2024-09-27] MEDS ORDERED: BENZONATATE 100 MG CAPSULE PO PRN (17:46)
[2024-09-27] MEDS ORDERED: ONDANSETRON INJ 2 MG/ML 2 ML VIAL IV PRN (17:46)
[2024-09-27] MEDS ORDERED: POLYETHYLENE (MIRALAX) 17 GM PACK PO PRN (17:46)
[2024-09-27] MEDS: ALBUT/IPRATROP 3MG/0.5MG NEB 3 ML VIAL NEB SCH (19:47)
[2024-09-27] MEDS: SIMVASTATIN 20 MG TAB PO SCH (20:46)
[2024-09-27] MEDS: ACETAMINOPHEN 325 MG TAB PO PRN (20:46)
[2024-09-27] MEDS: guaiFENesin 600 MG TABCR PO SCH (20:46)
[2024-09-27] MEDS: ATENOLOL 25 MG TABLET PO SCH (20:46)
[2024-09-28] MEDS: LEVOTHYROXINE SODIUM 125 MCG TABLET PO SCH (06:03)
[2024-09-28 06:36] LABS: Hematocrit (blood only) 33.1 % (37.0-47.0); Hemoglobin 10.6 g/dl (12.0-16.0); Mean Corpuscular Hemoglobin 29.2 pg (25.0-34.0); Mean Corpuscular Volume 91.2 fL (80.0-100.0); Platelet Count 282 K/uL (130-400); RDW Standard Deviation 46.1 fL (36.4-46.3); Red Blood Count 3.63 M/uL (4.20-5.40); White Blood Count 3.71 K/ul (4.8-10.8)
[2024-09-28 06:57] LABS: Anion Gap 7.0 (3-11); Blood Urea Nitrogen 19.0 mg/dl (6-23); Calcium 9.2 mg/dl (8.6-10.3); Carbon Dioxide 27.0 mmol/L (21-32); Chloride 103.0 mmol/L (98-107); Creatinine Clr Calc Pharmacy 61.4 ml/min; Glucose 126.0 mg/dl (70-99(Fasting)); Potassium 4.0 mmol/L (3.5-5.1); Sodium 137.0 mmol/L (136-145)
[2024-09-28 07:07] LABS: INR 2.3 (0.9-1.1); Prothrombin Time 23.6 Seconds (9.0-12.0)
--- NOTE | 2024-09-28 08:09 | Hospitalist Progress Note ---
"Date of Service September 28, 2024 Assessment & Plan (1) Rhinovirus infection: (2) CHF (congestive heart failure): (3) Atrial fibrillation: (4) HTN (hypertension): Francisco Garcia is an 83F with a PMHx of afib, HFpEF, asthma, HTN, bioprosthetic AVR, HLD, hypothyroid who presents to the hospital after being hypoxic at home in the 80s. Initial evaluation shows new oxygen requirement and CXR showing vascular congestion suggesting CH, also positive for Rhinovirus, still with oxygen requirement #Rhino/enterovirus/acute respiratory failure with hypoxemia/acute asthma exacerbation Viral pneumonia cause of the hypoxia. One time dose of dexamethasone -improved no additional doses required supportive care: IS, FV, mucinex, scheduled nebs, prn tessalon Wean O2 as able, goal < 90%, baseline is room air (consider 2-step prior to d/c had to go home with O2 after last admission with flu A) PT/OT # Chronic diastolic CHF with exacerbation BNP is 234 (higher than prior) and CXR with vascular congestion. Echo from 05/2024 with moderate LVH, preserved EF 60-65%, LA severely dilated, bioprosthetic AV, moderate MR, elevated RVSP 50 mmHg 40mg IV lasix then continue bid po dosing #Afib | Chronic Warfarin Use, rate controlled INR therapeutic , goal 2-3 Continue home Warfarin dosing. Continue atenolol #HTN - continue amlodipine #Hypothyroid - continue synthroid DVT proh: Home Warfarin Admission and Anticipated Discharge Date Admission Date: September 27, 2024 Subjective Patient is improved feels recovering from her viral pneumonia and exacerbation of heart failure preserved ejection fraction. Still with dyspnea on exertion minor rhonchi on examination Physical Exam Physical Exam: Right sided chest rhonchi on auscultation no wheezes no focal Aralast Cardiac exam sounds regular with systolic murmur consistent with her aortic valve replacement Results & Data Results & Data Vital Signs (Past 12 Hours) Vital Signs Temp Pulse Pulse Resp BP Pulse Ox O2 Del Method 09/28/24 07:45 68 16 98 Nasal Cannula 09/28/24 06:45 69 09/28/24 02:00 97.9 F 66 16 106/62 91 Nasal Cannula 09/27/24 22:31 97.5 F L 87 18 115/69 92 Nasal Cannula 09/27/24 21:52 83 09/27/24 20:53 Nasal Cannula O2 Flow Rate 09/28/24 07:45 2 09/28/24 06:45 09/28/24 02:00 2 09/27/24 22:31 2 09/27/24 21:52 09/27/24 20:53 2 Laboratory Results Reviewed CBC reviewed chemistry PG Care Time/CCT Total # of Minutes Spent Total Time Spent with Patient: Total time spent is greater than 50% in coordination of care (as documented) at patient's floor/unit and/or counseling patient: Coding Level of Care Code 83110 SUB INP/OBS CARE 3/50MIN Diagnoses Rhinovirus infection B34.8 CHF (congestive heart failure) I50.9 Atrial fibrillation I48.91 HTN (hypertension) I10"
[2024-09-28] MEDS: LORATADINE 10 MG TAB PO SCH (08:10)
[2024-09-28] MEDS: ASPIRIN 81 MG ECTAB PO SCH (08:10)
[2024-09-28] MEDS: POTASSIUM CHLORIDE CRTAB 20 MEQ TABCR PO SCH (08:10)
[2024-09-28] MEDS: FUROSEMIDE 40 MG TAB PO SCH ×2 (08:10→16:19)
[2024-09-28] MEDS ORDERED: SIMVASTATIN 20 MG TAB PO SCH (09:00)
[2024-09-28] MEDS ORDERED: ATENOLOL 25 MG TABLET PO SCH (09:00)
[2024-09-28] MEDS: WARFARIN SOD 2.5 MG TAB PO SCH (17:34)
[2024-09-28] MEDS: WARFARIN SOD 5 MG TAB PO SCH (17:45)
[2024-09-29 06:45] LABS: INR 2.2 (0.9-1.1); Prothrombin Time 21.9 Seconds (9.0-12.0)
--- NOTE | 2024-09-29 11:35 | Hospitalist Progress Note ---
"Date of Service September 29, 2024 Assessment & Plan (1) Rhinovirus infection: (2) CHF (congestive heart failure): (3) Atrial fibrillation: (4) HTN (hypertension): Francisco Garcia is an 83F with a PMHx of afib, HFpEF, asthma, HTN, bioprosthetic AVR, HLD, hypothyroid who presents to the hospital after being hypoxic at home in the 80s. Initial evaluation shows new oxygen requirement and CXR showing vascular congestion suggesting CH, also positive for Rhinovirus, still with oxygen requirement #Rhino/enterovirus/acute respiratory failure with hypoxemia/acute asthma exacerbation Viral pneumonia cause of the hypoxia. One time dose of dexamethasone -improved no additional doses required supportive care: IS, FV, mucinex, scheduled nebs, prn tessalon Wean O2 as able, goal < 90%, baseline is room air patient required oxygen with her last admission for influenza she returned this without physician supervision to step will be performed prior to going home anticipating need for oxygen at home. PT/OT # Chronic diastolic CHF with exacerbation BNP is 234 (higher than prior) and CXR with vascular congestion. Echo from 05/2024 with moderate LVH, preserved EF 60-65%, LA severely dilated, bioprosthetic AV, moderate MR, elevated RVSP 50 mmHg 40mg IV lasix now stable with bid po dosing #Afib | Chronic Warfarin Use, rate controlled INR therapeutic , goal 2-3 Continue home Warfarin dosing. Continue atenolol #HTN - continue amlodipine #Hypothyroid - continue synthroid DVT proh: Home Warfarin Admission and Anticipated Discharge Date Admission Date: September 27, 2024 Subjective Patient is improved feels recovering from her viral pneumonia and exacerbation of heart failure preserved ejection fraction. Still with dyspnea patient had significant desaturations after ambulation 09/29/2024 She has a cough which is nonproductive on 09/29/2024 Physical Exam Physical Exam: Right sided chest rhonchi on auscultation persist no wheezes no focal air loss Cardiac exam sounds regular with systolic murmur consistent with her aortic valve replacement Results & Data Results & Data Vital Signs (Past 12 Hours) Vital Signs Temp Pulse Pulse Resp BP Pulse Ox O2 Del Method 09/29/24 08:08 98.1 F 76 18 117/57 L 93 Room Air 09/29/24 07:36 74 16 93 Room Air 09/29/24 06:45 69 09/29/24 02:34 97.3 F L 71 16 111/65 94 Room Air PG Care Time/CCT Total # of Minutes Spent Total Time Spent with Patient: Total time spent is greater than 50% in coordination of care (as documented) at patient's floor/unit and/or counseling patient: Coding Level of Care Code 30505 SUB INP/OBS CARE 2/35MIN Diagnoses Rhinovirus infection B34.8 CHF (congestive heart failure) I50.9 Atrial fibrillation I48.91 HTN (hypertension) I10"
--- NOTE | 2024-09-29 14:13 | Electrocardiogram Report ---
Test Reason : Blood Pressure : */* mmHG Vent. Rate : 88 BPM Atrial Rate : 110 BPM P-R Int : * ms QRS Dur : 86 ms QT Int : 398 ms P-R-T Axes : * -9 -36 degrees QTcB Int : 481 ms Atrial flutter with variable A-V block Cannot rule out Inferior infarct , age undetermined Abnormal ECG When compared with ECG of 17-Jun-2024 21:42, Questionable change in QRS axis Nonspecific T wave abnormality, worse in Inferior leads Confirmed by Kenneth Rawls ([id number]) on 09/29/2024 2:13:14 PM Referred By: REFERRED SELF Confirmed By: Kenneth Rawls
[2024-09-29] MEDS: MELATONIN 3 MG TAB PO PRN (20:09)
[2024-09-30] MEDS: MELATONIN 3 MG TAB PO PRN (00:09)
[2024-09-30 07:42] LABS: INR 2.2 (0.9-1.1); Prothrombin Time 22.4 Seconds (9.0-12.0)
[2024-09-30 09:28] VITALS: RESP 18
[2024-09-30 11:28] VITALS: BP 98/64; TEMP 97.9
[2024-09-30 13:17] VITALS: O2SAT 90
--- NOTE | 2024-09-30 14:29 | Discharge Summary ---
"Discharge Summary Date of Service September 30, 2024 Principal Dx & Hospital Course #1 = Principal Diagnosis (1) Rhinovirus infection: (2) CHF (congestive heart failure): (3) Atrial fibrillation: (4) HTN (hypertension): Francisco Garcia is an 83F with a PMHx of afib, HFpEF, asthma, HTN, bioprosthetic AVR, HLD, hypothyroid who presents to the hospital after being hypoxic at home in the 80s. Initial evaluation shows oxygen requirement and CXR showing vascular congestion suggesting CH, also positive for Rhinovirus, patient required oxygen after her last stay for viral lung infection she was encouraged not to self discontinue it but discussed with her primary care provider prior to discontinuing #Rhino/enterovirus/acute respiratory failure with hypoxemia/acute asthma exacerbation Viral pneumonia cause of the hypoxia. One time dose of dexamethasone -improved no additional doses required 2 step evaluation does support the need for oxygen with exertion of 2 L nasal cannula # Chronic diastolic CHF with exacerbation BNP is 234 (higher than prior) and CXR with vascular congestion. Echo from 05/2024 with moderate LVH, preserved EF 60-65%, LA severely dilated, bioprosthetic AV, moderate MR, elevated RVSP 50 mmHg Patient has been stable on her oral dosing #Afib | Chronic Warfarin Use, rate controlled INR therapeutic , goal 2-3 Continue home Warfarin dosing. Continue atenolol #HTN - continue amlodipine #Hypothyroid - continue synthroid Notes For Next Care Provider It was reinforced to the patient not to discontinue her oxygen as she did last time she actually may require this for more prolonged use rather than just with these viral infections. She has been euvolemic at time of discharge on twice daily oral diuretic therapy Admission HPI Per Admitting Provider Radha is an 83F with a PMHx of afib (on coumadin), CHF, asthma, HTN, bioprosthetic AVR, HLD, hypothyroid who presents to the hospital after being hypoxic at home in the 80s. Feeling ill this week, went to PCP office on Monday and diagnosed with bronchitis gave her keflex. Has been taking this at home, and not getting better. Noticing that her oxygen dropping to 87-88% with ambulation. Getting SOB with activity. Was coughing earlier in the week but that has improved. Reports tightness in her chest. Report no change in bowel habits. No changes in appetite. Hx of asthma - no longer taking anything daily, because insurance stopped paying for it and felt like she no longer needed it. Denies fever or chills. NO recent falls. No supplementation oxygen at baseline. She was found to be positive for rhino/enterovirus in the ED. Took her medication this morning. Uses rollator at baseline. Lives alone at [facility] in [place]. ED course: DuoNeb Discharge Exam Right sided chest rhonchi on auscultation persist no wheezes no focal air loss Cardiac exam sounds regular with systolic murmur consistent with her aortic valve replacement Discharge Plan Discharge Items Patient Disposition: Home - Home Health Services Reason For Visit: RHINOVIRUS Discharge Diagnosis: rhinovirus pneumonia with low oxygen level Condition on Discharge: Fair Activity: Resume your previous activity Non-emergency contact: Primary Care Provider Call non-emergency contact if: your symptoms worsen Follow-up/Referrals: Bro Modi PA-C [Primary Care Provider] - (PLEASE CALL YOUR PRIMARY CARE PROVIDER TO SCHEDULE A HOSPITAL FOLLOW-UP APPOINTMENT WITHIN 7-10 DAYS) Diet: Low Sodium (2gm) Addtl Attending Provider Instructions: you were diagnosed with a viral pneumonia, and like in the past, will require some oxygen when you are moving about or walking, please discuss with your family doctor before stopping the oxygen, they can perform a walking oxygen test in the office to see when you are ready to stop the oxygen Pending Studies at Discharge: No Stand-Alone Forms: My [facility], Smoking Cessation Medications and DC Order Prescriptions: Continued atenolol 25 mg tablet 25 mg PO QAM amlodipine 5 mg tablet 5 mg PO QAM simvastatin 20 mg tablet 20 mg PO QAM potassium chloride 20 mEq Tablet Extended Release 20 meq PO DAILY levothyroxine 125 mcg tablet 125 mcg PO DAILYBB furosemide 40 mg tablet 80 mg PO QAM Rx Instructions: TAKE TWO TABLETS EVERY MORNING furosemide 40 mg Tablet 40 mg PO .QAFTERNOON Rx Instructions: TAKE ONE TABLET EVERY AFTERNOON. aspirin 81 mg Tablet,Delayed Release (Dr/Ec) 81 mg PO DAILY Patient Comments: 7/4- otc unable to verify loratadine 10 mg Tablet 10 mg PO DAILY Patient Comments: 7/4- otc unable to verify acetaminophen 650 mg Tablet Extended Release 650 mg PO Q6H PRN (Reason: Pain) Patient Comments: 7/4- otc unable to verify ciclopirox 8 % solution 1 applic TOPICAL DAILY Rx Instructions: APPLY TO AFFECTED NAILS EVERY DAY AND REMOVE BUILD-UP ONCE WEEKLY WITH ALCOHOL OR NAIL TURKMEN REMOVER. warfarin 4 mg tablet 0 mg PO 3XWK Patient Comments: 09/27- 4mg dose last filled 07/23 70 day supply #30 Rx Instructions: TAKE 4MG EVERY MONDAY/MONDAY/MONDAY. benzonatate 100 mg Capsule 100 mg PO TID PRN (Reason: cough) Qty: 30 0RF guaifenesin [Mucinex] 600 mg Tablet Extended Release 12hr 600 mg PO Q12 Qty: 30 0RF Patient Comments: 09/27- otc unable to verify albuterol sulfate 90 mcg/actuation HFA aerosol inhaler 1 inh inhalation Q6H PRN (Reason: shortness of breath or wheezing) Qty: 8.5 0RF (DME) Incentive Spirometer Misc See Rx Instructions .Route Qty: 1 0RF Rx Instructions: As directed warfarin 2.5 mg tablet 0 mg PO 4XWK Patient Comments: 09/27-Last filled 09/20 84 day supply #96: 5mg po (2.5mg x2 tablets) on tues, thurs, sat, and sun Rx Instructions: tues, thurs, sat, and sun Discontinued cephalexin 250 mg capsule 250 mg PO TID Patient Comments: 09/27-Filled 09/25 7 day supply #21 Discharge Orders: Discharge Order (Routine); Ordered 09/30/24 Ordered By: Bro Stephenson Admission Data Admit Date/Time: 09/27/24 14:38 Attending Provider: Bro Stephenson Admit Provider: Belia Barcenas Primary Care Provider: Bro Modi Other Providers: Cory Olivarez Other Interventions: Discharge Summary Assessment (RN) Last Done: 09/30/24 13:30 Hospital Stay Data Consultations 09/27/24 13:55 ED Decision to Admit Stat Pending Results Patient Have Any Pending Studies at Discharge: No Discharge Instructions Given to Patient (Per Discharging Provider) you were diagnosed with a viral pneumonia, and like in the past, will require some oxygen when you are moving about or walking, please discuss with your family doctor before stopping the oxygen, they can perform a walking oxygen test in the office to see when you are ready to stop the oxygen Total Time Total Time Spent Total Time Spent (In Minutes): It required greater than 30 minutes to prepare this patient for discharge. Coding Level of Care Code 70385 INP/OBS DISCH >30 MIN Diagnoses Rhinovirus infection B34.8 CHF (congestive heart failure) I50.9 Atrial fibrillation I48.91 HTN (hypertension) I10"
[2024-09-30 14:37] VITALS: PULSE 93
[2024-09-30] MEDS: WARFARIN SOD 4 MG TAB PO SCH (16:14)
== END 2024-09-30 16:39 | disposition home or self-care (01) | DRG 193 ==
LOC: ED 10:02 → 2W 14:38 → SUATTDRO 14:38 → 2W 17:09